=== PATIENT | female | born 1950 | race Caucasian/White ===

== ENCOUNTER 2016-07-21 02:29 | Inpatient (IN) | payer MEDICARE, OTHER ==
[2016-07-21] VITALS (25 sets, daily range): BP systolic 122–152; BP diastolic 64–96; PULSE 66–83; RESP 16–18; TEMP 98.1–98.6; O2SAT 95–97
[~2016-07-21 02:29] MED LIST: LEVO112T2 PO; LISI-515 PO; METF500T PO; VENL100T PO
[2016-07-21] MEDS: SODIUM CHLOR 0.9% 1000 ML INJ 1,000 ML IV SCH (03:00)
[2016-07-21] MEDS ORDERED: NALOXONE HCL 0.4 MG/ML AMP IV PRN (03:00)
[2016-07-21] MEDS ORDERED: SODIUM CHLORIDE 0.9% FLUSH 10 ML FLUSH IV FLUSH PRN (03:00)
[2016-07-21] MEDS ORDERED: ONDANSETRON HCL 4 MG/2 ML VIAL IVP PRN (03:00)
[2016-07-21] MEDS ORDERED: BISACODYL 10 MG SUPP RECTAL PRN (03:00)
[2016-07-21] MEDS ORDERED: MAGNESIUM HYDROXIDE SUSP 30 ML CUP PO PRN (03:00)
[2016-07-21] MEDS ORDERED: RESP: ALBUTEROL 2.5 MG/IPRATROPIUM 0.5 MG NEB (PRN) NEB (04:30)
--- NOTE | 2016-07-21 04:31 | HHI.HP ---
HPI Service [facility] Hospitalists Primary Care Physician Non-Staff Admission Diagnosis NSTEMI Diagnoses: Chief Complaint: Chest pain Travel History International Travel<30 Days: No Contact w/Intl Traveler <30 Da: No Traveled to Known Affected Are: No History of Present Illness Written by Michell Whelan, acting as scribe for Dr. Marte on 07/21/16 at 04: 29. This is a 66-year-old female patient with a past medical history which includes hypertension, hyperlipidemia, diabetes mellitus type 2 hypothyroidism and severe persistent asthma. Patient reports that she began to have left sided chest pain. Patient reports the chest pain started approximately 9 PM 2016. The patient describes chest pain left anterior tightness with intermittent sharp pains. Chest pain radiated to the back and left side of her jaw associated with nausea and shortness of breath. Patient reports her asthma has been uncontrolled recently due to mold in her home. Patient reports she uses Symbicort twice a day and continue to use her albuterol rescue inhaler multiple times throughout the day. Patient has also noticed a dry nonproductive cough for the past 3 days. Patient denies fevers chills diarrhea constipation. Patient is a chronic tobacco user and continues to smoke approximately 10 cigarettes per day. Initial EKG done at [facility] [place] reviewed and revealed sinus rhythm rate of 82 bpm with left bundle branch block. Patient does not have prior EKGs on record and is unaware of a left bundle branch block in the past. Review of Systems Except as stated in HPI: all other systems reviewed are Neg Past Family Social History Past Medical History hypertension, hyperlipidemia, diabetes mellitus type 2 hypothyroidism and severe persistent asthma. Past Surgical History Hysterectomy, cholecystectomy Reported Medications Effexor (Venlafaxine HCl) 100 Mg Tab 150 Mg PO DAILY Lisinopril 20 Mg Tab 20 Mg PO DAILY Levothyroxine (Levothyroxine Sodium) 112 Mcg Tab 112 Mcg PO DAILY Metformin (Metformin HCl) 500 Mg Tab 500 Mg PO BIDPC With meals Allergies: Coded Allergies: Aspirin (Verified Allergy, Severe, 07/20/16) Active Ordered Medications Current Medications Medications (Trade) Dose Ordered Sig/Luke Route Start Time Stop Time Status Last Admin (Synthroid) 112 mcg DAILY@0600 PO 07/21/16 06:00 (Prinivil) 20 mg DAILY PO 07/21/16 09:00 Venlafaxine HCl 150 mg 150 mg DAILY PO 07/21/16 09:00 (NS 1000 ml Inj) 1,000 ml @ 42 mls/hr [id number] IV 07/21/16 03:00 07/21/16 03:00 (NS Flush) 2 ml UNSCH PRN IV FLUSH 07/21/16 03:00 (NS Flush) 2 ml BID IV FLUSH 07/21/16 09:00 (Tylenol) 650 mg Q4H PRN PO 07/21/16 03:00 (Zofran Inj) 4 mg Q6H PRN IVP 07/21/16 03:00 (Narcan Inj) 0.4 mg UNSCH PRN IV 07/21/16 03:00 (Milk Of Magnesia Liq) 30 ml Q12H PRN PO 07/21/16 03:00 (Dulcolax Supp) 10 mg DAILY PRN RECTAL 07/21/16 03:00 (Lovenox Inj) 80 mg Q12H SQ 07/21/16 12:00 (Pravachol) 40 mg DAILY PO 07/21/16 09:00 (Nitroglycerin 2% Oint) 0.5 inch Q6HR TOPICAL 07/21/16 06:00 Family History Patient's sister secondary to [place] Social History Patient reports she occasionally drinks alcohol on weekends normal daily basis Reports she continues to smoke cigarettes but has cut back to 10 cigarette per day Physical Exam Vital Signs Vital Signs Date Time Temp Pulse Resp B/P Pulse Ox O2 Delivery O2 Flow Rate FiO2 07/21/16 04:00 74 07/21/16 03:00 98.1 83 16 152/96 95 07/21/16 03:00 80 Physical Exam GENERAL: This is a well-nourished, well-developed patient, in no apparent distress at this time. Patient denies chest pain but has continued back pain SKIN: No rashes, ecchymoses or lesions. Cool and dry. HEAD: Atraumatic. Normocephalic. No temporal or scalp tenderness. EYES: Extraocular motions intact. No scleral icterus. No injection or drainage. CARDIOVASCULAR: Regular rate and rhythm without murmur gallop or rub RESPIRATORY: Clear to auscultation. Breath sounds equal bilaterally. No wheezes , rales, or rhonchi. GASTROINTESTINAL: Abdomen soft, non-tender, nondistended. No hepato-splenomegaly , or palpable masses. No guarding. MUSCULOSKELETAL: Extremities without clubbing, cyanosis, or edema. No joint tenderness, effusion, or edema noted. No calf tenderness. Negative Homans sign bilaterally. NEUROLOGICAL: Awake and alert. No focal deficits appreciated. Motor and sensory grossly within normal limits. Five out of 5 muscle strength in all muscle groups. Normal speech. Laboratory Laboratory Tests Test 07/21/16 03:30 Troponin I 0.13 Result Diagram: 07/21/16 1047 07/21/16 104 Imaging Chest x-ray reviewed and reveals normal exam mild diffuse interstitial prominence Assessment and Plan Problem List: (1) NSTEMI (non-ST elevated myocardial infarction) ICD Code: I21.4 Status: Acute Assessment and Plan This is a 66-year-old female patient with a past medical history which includes hypertension, hyperlipidemia, diabetes mellitus type 2 hypothyroidism and severe persistent asthma. Patient reports that she began to have left sided chest pain. Initial EKG done at [facility] [place] reviewed and revealed sinus rhythm rate of 82 bpm with left bundle branch block. Patient does not have prior EKGs on record and is unaware of a left bundle branch block in the past. Initially [facility] was called who felt patient did not need urgent catheterization. ER physician spoke with Dr. Guillermo costa agreed to see patient in consultation and evaluate in a.m. for possible cardiac catheterization. NSTEMI Initial EKG reviewed and revealed sinus rhythm heart rate 82 bpm with left bundle branch block Consult cardiology Nothing by mouth Lovenox 1 mg/kg twice a day Nitro paste every 6 hours Continue serial troponin and serial EKG monitoring Continuous telemetry monitoring Start pravastatin 40 mg by mouth daily Will not start beta gerry at this time as patient has severe persistent asthma Unable to give aspirin as patient reports she has anaphylactic reaction in the past with aspirin Severe persistent asthma Continue Symbicort twice a day Duo nebs every 2 hours as needed for shortness of breath Diabetes mellitus type 2- chronic Hold metformin Accu-Cheks before meals at bedtime with low-dose sliding scale insulin coverage. Hypertension- chronic continue lisinopril Continue to monitor blood pressure trend Hypothyroidism- chronic Continue home Synthroid Tobacco abuse patient counseled extensively encouraged to abstain DVT prophylaxis patient is on Lovenox Discussed with ER provider, nursing and patient Physician Certification 2 Midnight Certification Type: Admission for Inpatient Services Order for Inpatient Services The services are ordered in accordance with Medicare regulations or non- Medicare payer requirements, as applicable. In the case of services not specified as inpatient-only, they are appropriately provided as inpatient services in accordance with the 2-midnight benchmark. Estimated LOS (days): 3 days is the estimated time the patient will need to remain in the hospital, assuming treatment plan goals are met and no additional complications. Post-Hospital Plan: Home Attending Statement The exam, history, and the medical decision-making described in the above note were completed with the assistance of the mid-level provider. I reviewed and agree with the findings presented. I attest that I had a [id number] encounter with the patient on the same day, and personally performed and documented my assessment and findings in the medical record. The patient was seen and examined earlier today around 10:30 AM. The patient states she had chest pain earlier but this has resolved after she was placed on a nitroglycerin patch. Denies chest pain or short of breath at the moment of this interview. The patient however states she has a very tender nodule on her back which she has noted for the past 2 weeks. She also complains of subjective fevers for the past same time. Patient is a febrile here in the hospital. Patient is awake alert oriented 3, nonacute distress, no respiratory distress observed. Subcutaneous bilaterally, S1-S2 regular rate and rhythm without murmurs rubs or gallops. This shows a tender erythematous nodule the mid back with some fluctuance to it. Patient presents with chest pain found to have elevated cardiac enzymes. Etiology consulted, discussed the case with Dr. Baron recommended a cardiac catheterization. Due to monitor cardiac enzymes, EKG as needed for chest pain. Continue treatment with aspirin, Lovenox subcutaneous at 80 mg every 12 hours , statin. Continue LILIANA inhibitor, although I will decrease the dose of lisinopril to 10 minutes by mouth daily in order to be able to start the patient on a beta gerry. Keep nothing by mouth at midnight. Will order labs and check a 2-D echocardiogram. Patient also has a nodule which looks infected. We'll order a soft tissue ultrasound of the pack to assess for fluid collection. In the meantime I will start the patient on IV Cefazolin. Michell Whelan Jul 21, 2016 04:31 Osvaldo Martin MD Jul 21, 2016 15:42
[2016-07-21] MEDS: NITROGLYCERIN 2% OINT 1 GM PACKET TOPICAL SCH ×4 (06:12→23:48)
[2016-07-21] MEDS: LEVOTHYROXINE SODIUM 112 MCG TAB PO SCH (06:12)
[2016-07-21] MEDS: VENLAFAXINE HCL XR 75 MG CAP PO SCH (08:50)
[2016-07-21] MEDS: PRAVASTATIN SOD 40 MG TAB PO SCH (08:50)
[2016-07-21] MEDS: SODIUM CHLORIDE 0.9% FLUSH 10 ML FLUSH IV FLUSH SCH ×2 (08:50→20:35)
[2016-07-21] MEDS ORDERED: LISINOPRIL 20 MG TAB PO SCH (09:00)
[2016-07-21 11:18] LABS: AUTOMATED NEUTROPHIL # 4.6 TH/MM3 (1.8-7.7); BASOPHIL # 0.2 TH/MM3 (0-0.2); EOSINOPHIL # 0.4 TH/MM3 (0-0.4); EOSINOPHIL % 4.5 % (0.0-4.0); HEMATOCRIT 36.7 % (35.0-46.0); HEMO FLAGS DIFF FINAL; LYMPH % 23.6 % (9.0-44.0); LYMPHOCYTE # 1.8 TH/MM3 (1.0-4.8); MEAN CELL VOLUME 92.8 FL (80.0-100.0); MEAN CORPUSCULAR HEMOGLOBIN 30.3 PG (27.0-34.0); MEAN CORPUSCULAR HGB CONC 32.7 % (32.0-36.0); MONO % 11.1 % (0.0-8.0); NEUT % 58.8 % (16.0-70.0); PLATELET COUNT 145 TH/MM3 (150-450); RED BLOOD COUNT 3.95 MIL/MM3 (4.00-5.30); RED CELL DISTRIBUTION WIDTH 14.1 % (11.6-17.2); WHITE BLOOD COUNT 7.8 TH/MM3 (4.0-11.0)
[2016-07-21 11:31] LABS: PROTHROMBIN TIME - PATIENT 10.5 SEC (9.8-11.6)
[2016-07-21] MEDS: CARVEDILOL 3.125 MG TAB PO SCH ×2 (11:32→20:34)
[2016-07-21] MEDS: ENOXAPARIN SODIUM 80 MG/0.8 ML SYRINGE SQ SCH ×2 (11:33→23:47)
[2016-07-21 11:35] LABS: ALT (GPT) 15 U/L (10-53); ANION GAP 10 MEQ/L (5-15); AST (GOT) 14 U/L (15-37); BICARBONATE 27.2 MEQ/L (21.0-32.0); BLOOD UREA NITROGEN 10 MG/DL (7-18); CHLORIDE 107 MEQ/L (98-107); GLOMERULAR FILTRATION RATE 127 ML/MIN (>89); MAGNESIUM 2.1 MG/DL (1.5-2.5); POTASSIUM 3.7 MEQ/L (3.5-5.1); SODIUM (NA) 144 MEQ/L (136-145)
[2016-07-21 11:38] LABS: ALKALINE PHOSPHATASE 57 U/L (45-117); TOTAL BILIRUBIN ADULT 0.8 MG/DL (0.2-1.0)
--- NOTE | 2016-07-21 11:44 | MB ---
cc: BALDOMERO BARFIELD DO DATE OF CONSULTATION 07/21/2016 REASON FOR CONSULTATION Chest pain with elevation of troponins. HISTORY OF PRESENT ILLNESS Monique Cerda is a pleasant 66-year-old female who presented to [facility] emergency room on July 20, 2016 due to chest pain. She states that she started having left-sided chest pain at around 09:00 p.m. on July 20, 2016. Left-sided chest pain was felt somewhat tight and squeezing with intermittent sharp pains. It did radiate somewhat to her jaw and she felt nauseous and short of breath with it. She was given nitro in the emergency room and this helped. She states that she has not had pain like this before. She was push mowing her lawn three to four weeks ago and had no pain or shortness of breath. She states that she does have to take a rest while mowing her lawn, but she feels this due to shortness of breath due to her asthma. Initial EKG done at the emergency room revealed a left bundle branch block. Per the patient, she had no prior history or awareness of an abnormal EKG or a left bundle branch block. She does have a history of an ALLERGIC REACTION TO ASPIRIN. Around the age of 40, she was given aspirin and at that time had respiratory arrest leading to cardiac arrest. Because of the episode, she was in the ICU for four to five days. Since then, she has had no other attempts at taking aspirin and has never been desensitized. PAST MEDICAL HISTORY 1. Hypertension 2. Hyperlipidemia 3. Diabetes mellitus type 2 4. Hypothyroidism 5. Severe asthma PAST SURGICAL HISTORY 1. Hysterectomy 2. Cholecystectomy ALLERGIES ASPIRIN WITH SEVERE ANAPHYLACTIC REACTION ABOVE. MEDICATIONS 1. Effexor 150 mg daily 2. Lisinopril 20 mg daily 3. Metformin 500 mg b.i.d. 4. Synthroid 112 mcg daily FAMILY HISTORY The patient had a sister who secondary to a myocardial infarction. SOCIAL HISTORY The patient states that she occasionally drinks alcohol on weekends. She denies drug abuse. She has a history of smoking cigarettes, but has cut back to 10 cigarettes per day. PHYSICAL EXAMINATION VITAL SIGNS: Temperature 98.2, heart rate 68, blood pressure 122/64, respirations 18, pulse ox 95% on room air. GENERAL: In general, the patient appears well in no acute distress, alert, awake and oriented x3. HEAD, EYES, EARS, NOSE, AND THROAT: Extraocular muscles intact. Mucous membranes moist. NECK: Supple. No JVD at 45 degrees. No carotid bruits heard bilaterally. Carotid upstroke is brisk in nature. HEART: Regular rate and rhythm. Positive first and second heart sounds with no murmurs, gallops or rubs. PMI is difficult to ascertain, but does not appear displaced. LUNGS: Lungs have decreased breath sounds bilaterally with intermittent wheezing, but no overt rales noted. ABDOMEN: Soft, nontender and nondistended. No organomegaly noted. EXTREMITIES: Show no clubbing, cyanosis or edema. Femoral and distal pulses intact bilaterally. NEUROLOGIC: No focal deficits. SKIN: Warm, dry and intact. OSTEOPATHIC: No kyphoscoliosis, lordosis or paraspinal tender points. LABORATORY FINDINGS Hemoglobin 12.7, hematocrit 37.9, platelets 190. Potassium 3.8, BUN 14, creatinine 0.60, troponin 0.12 increasing to 0.17. BNP 469. Electrocardiogram (July 21, 2016 at 0330) sinus rhythm, leftward axis, left bundle branch block. IMPRESSION 1. Mildly elevated troponin. 2. Abnormal EKG with left bundle branch block for which the patient is unsure if she has ever had a history. 3. Chest pain concerning for coronary insufficiency. 4. Diabetes mellitus type 2 5. Hypertension 6. Hypothyroidism 7. Tobacco abuse RECOMMENDATIONS 1. Because Ms. Cerda presented with chest pain, mildly elevated troponin and left bundle branch block, I suggested that we undergo some type of ischemic evaluation. My original suggestion was for cardiac catheterization, but she would like to at least have a chance of holding off on this. 2. Because she would like to hold off on catheterization, I suggested that we do an echocardiogram and if the ejection fraction looks normal, consider stress testing and if that is negative, I feel comfortable with letting her continue with medical management. If echocardiogram shows a decreased ejection fraction, then the plan will be for cardiac catheterization in the morning. 3. As she has significant aspirin allergy causing respiratory and cardiac arrest, if she does need intervention, the plan would be for single antiplatelet therapy with either Plavix or Brilinta. I let her know that if she does take this route, she can never stop the medication as her risk of stent thrombosis. We will see about possibly getting her to see an allergies as an outpatient for consideration of desensitization so that she can be on dual antiplatelet therapy. 4. Further recommendations will be made after echocardiogram and throughout the hospital course. Thank you for allowing me to see Monique Cerda. If there are any questions, please do not hesitate to call. Baldomero Barfield DO VGP/DJL /10:44 AM /11:28 AM
--- NOTE | 2016-07-21 17:57 | ECHRPT ---
Indication: Abnormal electrocardiogram ECG EKG CONCLUSIONS The left ventricular systolic function is severely reduced with an estimated ejection fraction in th e range of 30-35%. Akinetic mid- anterolateral wall motion. Akinetic mid-inferolateral wall motion with scar.The left atrial size is mildly dilated.moderate mitral valve regurgitation.There is mild tricuspid valve regurgitation.The pulmonary valve is not well visualized . BP: 152 / 96 HR: 76 Rhythm: Other - LBBB MEASUREMENTS (Male / Female) Normal Values Technical Quality:Good 2D ECHO LV Diastolic Diameter PLAX 5.1 cm 4.2 - 5.9 / 3.9 - 5.3 cm LV Systolic Diameter PLAX 4.3 cm IVS Diastolic Thickness 0.9 cm 0.6 - 1.0 / 0.6 - 0.9 cm LVPW Diastolic Thickness 0.9 cm 0.6 - 1.0 / 0.6 - 0.9 cm LV Relative Wall Thickness 0.4 LVOT Diameter 2.0 cm M-MODE Aortic Root Diameter MM 2.8 cm LA Systolic Diameter MM 4.4 cm LA Ao Ratio MM 1.6 AV Cusp Separation MM 1.8 cm DOPPLER AV Peak Velocity 110.0 cm/s AV Peak Gradient 4.8 mmHg LVOT Peak Velocity 93.3 cm/s LVOT Peak Gradient 3.5 mmHg AV Area Cont Eq pk 2.7 cm MR Peak Velocity 519.5 cm/s MR Peak Gradient 108.0 mmHg Mitral E Point Velocity 109.0 cm/s Mitral A Point Velocity 44.9 cm/s Mitral E to A Ratio 2.4 TR Peak Velocity 250.0 cm/s TR Peak Gradient 25.0 mmHg PV Peak Velocity 95.0 cm/s PV Peak Gradient 3.6 mmHg FINDINGS Left Ventricle The left ventricular systolic function is severely reduced with an estimated ejection fraction in th e range of 30-35%. Akinetic mid-anterolateral wall motion. Akinetic mid-inferolateral wall motion with scar. Right Ventricle Normal right ventricular size and systolic function. Left Atrium The left atrial size is mildly dilated. Right Atrium The right atrial size is normal. Atrial Septum Normal atrial septal thickness without atrial level shunting by limited color doppler interrogation. Aorta The aortic root and proximal ascending aorta are normal in size on limited imaging. Mitral Valve moderate mitral valve regurgitation. Aortic Valve Trileaflet aortic valve. No aortic valve stenosis or regurgitation. Tricuspid Valve There is mild tricuspid valve regurgitation. Pulmonary Valve The pulmonary valve is not well visualized. Vessels The inferior vena cava is normal in size. Pericardium No pericardial effusion. Luis A Singh MD, FACC, FSCAI Edited by: [employer] (Electronically Signed) Final Date:21 July 2016 15:11 Amended: 21 July 2016 17:49
[2016-07-21] MEDS ORDERED: GLUCAGON 1 MG/ML VIAL OTHER PRN (19:00)
[2016-07-21] MEDS ORDERED: DEXTROSE 50% IN WATER 50 ML VIAL(D50) IV PRN (19:00)
[2016-07-21] MEDS: INSULIN ASPART SUPPLEMENTAL SCALE SQ SCH (20:34)
[2016-07-21] MEDS ORDERED: GABA600T PO (20:37)
--- NOTE | 2016-07-21 21:15 | EKG ---
Date Performed: 07/21/2016 Time Performed: 03:30:30 PTAGE: 66 years EKG: Sinus rhythm Leftward axis Left bundle branch block Abnormal ECG NO PREVIOUS TRACING DOCTOR: Breanna Agrawal Interpretating Date/Time 07/21/2016 21:11:56
--- NOTE | 2016-07-21 22:41 | RADRPT ---
EXAM DATE/TIME: 07/21/2016 22:04 [facility] COMPARISON: No previous studies available for comparison. INDICATIONS : Mid back abscess. MEDICAL HISTORY : Hypothyroidism. Myocardial infarction. Hypercholesterolemia. Cardiac arrest. Chest pain. HTN. Sleep a pnea. Dyspnea. Asthma. GERD. Arthritis. Diabetes. Depression. Anxiety. SURGICAL HISTORY : Cholecystectomy. Hysterectomy. Subclavian vein procedure. Breast cysts removal. ENCOUNTER: Initial ACUITY: 4-6 days PAIN SCORE: 7/10 LOCATION: Back. AREA EVALUATED: Right mid back. FINDINGS: Targeted sonogram along the right mid back demonstrates a complex superficial soft tissues collection measuring 17 x 17 x 15 mm. CONCLUSION: Small complex fluid collection possible abscess. Juan C Spivey MD on July 21, 2016 at 22:37 Board Certified Radiologist. This report was verified electronically.
[2016-07-21] MEDS: ACETAMINOPHEN 325 MG TAB PO PRN (23:47)
[2016-07-22] VITALS (31 sets, daily range): BP systolic 139–152; BP diastolic 76–92; PULSE 56–84; RESP 16–20; TEMP 97.4–98.8; O2SAT 91–98
[2016-07-22] MEDS: SODIUM CHLOR 0.9% 1000 ML INJ 1,000 ML IV SCH ×2 (02:49→23:45)
[2016-07-22] MEDS: INSULIN ASPART SUPPLEMENTAL SCALE SQ SCH ×4 (05:43→21:00)
[2016-07-22] MEDS: NITROGLYCERIN 2% OINT 1 GM PACKET TOPICAL SCH ×4 (05:43→23:45)
[2016-07-22] MEDS: LEVOTHYROXINE SODIUM 112 MCG TAB PO SCH (05:43)
[2016-07-22 06:45] LABS: AUTOMATED NEUTROPHIL # 3.8 TH/MM3 (1.8-7.7); BASOPHIL # 0.1 TH/MM3 (0-0.2); BASOPHIL % 0.8 % (0.0-2.0); EOSINOPHIL # 0.5 TH/MM3 (0-0.4); EOSINOPHIL % 5.9 % (0.0-4.0); HEMATOCRIT 35.7 % (35.0-46.0); HEMO FLAGS DIFF FINAL; LYMPH % 35.8 % (9.0-44.0); LYMPHOCYTE # 2.8 TH/MM3 (1.0-4.8); MEAN CORPUSCULAR HEMOGLOBIN 30.7 PG (27.0-34.0); MONO % 9.3 % (0.0-8.0); NEUT % 48.2 % (16.0-70.0); PLATELET COUNT 146 TH/MM3 (150-450); RED BLOOD COUNT 3.84 MIL/MM3 (4.00-5.30); RED CELL DISTRIBUTION WIDTH 13.9 % (11.6-17.2); WHITE BLOOD COUNT 7.9 TH/MM3 (4.0-11.0)
[2016-07-22 07:10] LABS: BICARBONATE 27.8 MEQ/L (21.0-32.0); POTASSIUM 3.7 MEQ/L (3.5-5.1)
[2016-07-22] MEDS: VENLAFAXINE HCL XR 75 MG CAP PO SCH (08:49)
[2016-07-22] MEDS: PRAVASTATIN SOD 40 MG TAB PO SCH (08:49)
[2016-07-22] MEDS: CARVEDILOL 3.125 MG TAB PO SCH ×2 (08:49→21:45)
[2016-07-22] MEDS: SODIUM CHLORIDE 0.9% FLUSH 10 ML FLUSH IV FLUSH SCH ×2 (08:50→21:45)
[2016-07-22] MEDS: ACETAMINOPHEN 325 MG TAB PO PRN ×3 (08:59→23:45)
[2016-07-22] MEDS ORDERED: LISINOPRIL 10 MG TAB PO SCH (09:00)
[2016-07-22] MEDS: ENOXAPARIN SODIUM 80 MG/0.8 ML SYRINGE SQ SCH (12:00)
[2016-07-22] MEDS ORDERED: HEPARIN-NS/PF INJ 500 ML ONE (12:21)
[2016-07-22] MEDS ORDERED: VERAPAMIL HCL 5 MG/2 ML VIAL ONE (12:22)
[2016-07-22] MEDS ORDERED: HEPARIN SODIUM - IV 10,000 UNITS/10 ML VIAL ONE ×2 (12:22→12:38)
[2016-07-22] MEDS ORDERED: NITROGLYCERIN INJ 5 ML ONE (12:22)
[2016-07-22] MEDS ORDERED: MIDAZOLAM HCL 2 MG/2 ML VIAL ONE (12:32)
[2016-07-22] MEDS ORDERED: IOHEXOL 350 MG/ML 100 ML BTL (for Cath Lab) OTHER ONE (13:00)
--- NOTE | 2016-07-22 13:24 | CATHPROC ---
TOSA ([employer]) HIS Report Study Information Study Number Admission Scheduled Start Study Start f791 07/22/2016 07/22/2016 Jul 22 2016 11:51AM Study Type Barre Service Left Heart Cath Cardiac Catheterization Referring Institution Admit Source Facility Department 1 Other [facility] Relationship Executive Physician and Clinical Staff Initial Baldom[facility] [place] Network Systems Engineer Alaina Mcfadden RN Other Myriam Rodgers BSRN Recorder Amanda Pagan,RT(R) Recorder Ted Encarnacion RCIS(BS) Scrub Fortino Rodgers,RT(R) TECH2 Procedures Performed Procedure Location (Site) Vessel Name Coronary Angiograms LCA Left Coronary Coronary Angiograms RCA Right Coronary L Heart Cath Equipment Time Drive Away Driver Description Size Mfg Part Number Used/Scraped TRANSDUCER, TRUWAVE [id number] 12:20 VILLAGOMEZ RICHARDS * Used W/STOCKCOCK *[id number] *[id number] *[id number] 12:20 [employer] PACK, CCL CUSTOM * Used *[id number] 12:20 [employer] SUPPORT, ARTERIAL ADULT [id number] Used BAND, RADIAL COMPRESSION TR [id number] 13:09 [employer] MEDICAL 24CM Used SHORT 24 *[id number] 12:20 [employer] WIRE, EXCHANGE 260CM 3MMJ 260CM Used *[id number] 12:20 NAMIC MANIFOLD, 4 PORT * Used *[id number] 12:20 [employer]ED OMNIPAQUE, 350 MG, 150ML 150ML [id number] Used [id number] 12:20 [employer] BLANKET,WARM AIR CCL * Used *[id number] SHEATH, FR6 TRANSRADIAL 12:20 [employer] FR 6 RM*[id number] Used SLENDER 10CM History: Current Medications Medication Dosage/Unit Route Frequency Last Date/Time Taken LISINOPRIL Synthroid Glucophage Statins (any) History: Allergies Allergy Reaction Aspirin History: Risk Factors Family History of Hypertension Dyslipidemia Previous TN Previous Heart Failure Premature CAD Yes No No No No Prior Valve Prior PCI Prior CABG Surgery No No No Cerebrovascular Peripheral Artery Chronic Lung On Dialysis Diabetes Diabetes Therapy Disease Disease Disease No No No Yes Yes Oral History: Symptoms/Diagnosis Selection Items Chest pain History: Stress Tests Stress or Imaging Studies Performed No History: Other Current Smoker Method Packs a Day Yes Cigarettes 1 Labs Hgb (g/dl) Hct (%) RBC (MIL/MM3) WBC (l/cumm) Platelets (thousands) 12.00-18.00 37.00-55.00 4.80-6.20 4.80-10.80 140.00-450.00 11.8 35.7 3.8 7.9 146 Glucose (mg/dl) BUN (mg/dl) Creatinine (mg/dl) BUN:Creatinine (1:x) 60.00-110.00 8.00-20.00 0.10-9.00 10.00-20.00 90 10 0.4 25 Na (meq/l) K (meq/l) Cl (meq/l) CO2 (mmol/L) Ca (mg/dl) 138.00-146.00 3.80-5.10 101.00-111.00 23.00-30.00 9.00-10.50 144 3.7 108 27.8 8.4 PT (sec) INR (PTT:PT) 9.40-11.40 0.50-2.00 10.5 1 Troponin I (ng/ml) CPK-MB (ng/ML) 0.40-2.30 0.00-7.00 0.1 Not Drawn Medication Medication Total Dose (Bolus/Oral) Medication Total Dosage/Unit 1% XYLOCAINE 20 mL FENTANYL 100 mcg RADIAL COCKTAIL 5 mL (Bolus) VERSED 1 mg Medications (Bolus/Oral) Medication Time Given Dosage/Unit Administered By Reason VERSED 07/22/2016 12:43:16 PM 0.5 mg Rittenour, Myriam 0.5 mg VERSED given in lab by Myriam Rodgers BSRN in Right Antecubital via Peripheral IV. Ordered by Baldomero Baron. FENTANYL 07/22/2016 12:44:00 PM 25 mcg Rittenour, Myriam 25 mcg FENTANYL given in lab by Myriam Rodgers BSRN in Right Antecubital via Peripheral IV. Ordere d by Baldomero Baron. 1% XYLOCAINE 07/22/2016 12:45:12 PM 20 mL Baldomero Baron 20 mL 1% XYLOCAINE given in lab by Baldomero Baron in Right Radial via Subcutaneous. Ordered by Pet Baldomero [place]. VERSED 07/22/2016 12:46:47 PM 0.5 mg Rittenour, Myriam 0.5 mg VERSED given in lab by Myriam Rodgers BSRN in Right Antecubital via Peripheral IV. Ordered by Baldomero Baron. FENTANYL 07/22/2016 12:47:00 PM 25 mcg Rittenour, Myriam 25 mcg FENTANYL given in lab by Myriam Rodgers BSRN in Right Antecubital via Peripheral IV. Ordere d by Baldomero Baron. Ntg 200mcg Verapamil 2.5mg Heparin RADIAL COCKTAIL 07/22/2016 12:47:28 PM 5 mL (Bolus) Rittenour, Myriam 3000U 5 mL (Bolus) RADIAL COCKTAIL given in lab by Myriam Rodgers BSRN via Radial. Using [Solution Name] . Ordered by Baldomero Baron. Reason: Ntg 200mcg Verapamil 2.5mg Heparin 3000U. FENTANYL 07/22/2016 1:07:00 PM 50 mcg Rittenour, Myriam 50 mcg FENTANYL given in lab by Myriam Rodgers BSRN in Right Antecubital via Peripheral IV. Ordere d by Baldomero Baron. Medication (Drip) Medication Time Given Dosage/Unit Concentration/Unit Diluent (ml) Solution IV Solutions 07/22/2016 12:26:17 PM 0 mL (IV) NaCl .9 IV Solutions given in lab by Alaina Mcfadden RN in Left Forearm via Peripheral IV. Pump/Drip Flow = 20 ml/hr using NaCl .9. Initial Case Assessment Cardiovascular HR Rhythm NIBP Chest Pain 89 reg 161/109 0 Edema Present Skin color Skin None Normal Warm Circulatory - Right Pulses Dorsalis Pedis Femoral Brachial Radial 2 1 2 2 Scale (0,1,2,3,4,d) Circulatory - Left Pulses Dorsalis Pedis Femoral Brachial Radial 2 Scale (0,1,2,3,4,d) Circulatory - Lower Extremities Color Lower Right Color Lower Left Normal Normal Neurological State Oriented to time-place- Alert Moves all extremities person Initial Case Assessment Cardiovascular HR Rhythm NIBP Chest Pain 89 reg 161/109 0 Edema Present Skin color Skin None Normal Warm Circulatory - Right Pulses Dorsalis Pedis Femoral Brachial Radial 2 1 2 2 Scale (0,1,2,3,4,d) Circulatory - Left Pulses Dorsalis Pedis Femoral Brachial Radial 2 Scale (0,1,2,3,4,d) Circulatory - Lower Extremities Color Lower Right Color Lower Left Normal Normal Neurological State Oriented to time-place- Alert Moves all extremities person Respiration - General Respiration Rate SpO2 (%) (B/min) 19 91 Chronological Log Time Study Chronological Log 12:10:36 Patient arrived via Bed. 12:11:43 Patient Name, D.O.B, / Armband Verified By R.N. 12:12:47 Consent signed by the physician and the patient and verified by the Relationship Executive staff. 12:18:52 Pre-op and post- op instructions given; patient acknowledges understanding of instructions. 12:21:14 Verbal Stimulation=2 Physical Stimulation=2 Airway=2 Respiration=2 TOTAL=8. (0=absent, 1=li mited, 2=present) Vitals capture started with the following parameters, Patient=Adult, Interval=5 min, Initial Pr byfpuk=093 mmHg, 12:21:18 Deflation Rate=5 mmHg 12:21:45 Reference ECG taken 12:22:26 HR=78 bpm, AKAX=336/104 mmhg, SpO2=95.0 %, Resp=20 B/min, Pain=0, Ebony=10, Calvin=2 12:24:40 Allens test performed on the right radial and ulnar artery with a positive result by kenrick cardona 12:25:12 Patient has been NPO for More than 6Hrs. 12:25:13 Skin Breakdown-none 12:25:54 Patient Warmer Placed on the Table. 12:25:58 A # 20 IV was noted in the Forearm (left). Grade = 0 IV Solutions given in lab by Alaina Mcfadden RN in Left Forearm via Peripheral IV. Pump/Drip Flow = 20 ml/hr using 12:26:17 NaCl .9. 12:26:39 A # 20 IV was noted in the Antecubital (right). Grade = 0 saline locked 12:26:57 HR=80 bpm, QSNW=360/109 mmhg, SpO2=95.0 %, Resp=21 B/min, Pain=0, Ebony=10, Calvin=2 12:27:10 History and physical on the chart or being dictated. Assessment: Initial Case, HR=89 BPM, Rhythm=reg, JFCC=450/109 mmhg, Chest Pain=0, Edema=None, Color=Normal, Skin = Warm Right Pulses: Hitesh Ped=2, Femoral=1, Brachial=2, Radial=2 12:27:12 Left Pulses: Hitesh Ped=2 Lower Right Extremities: Color=Normal Lower Left Extremities: Color=Normal Neurological: State=Alert, Ox3, ABARCA 12:31:43 Bilateral groins prepped with 2% chlorhexidine, and with a 3 min. waiting time. 12:31:58 HR=76 bpm, VFNK=188/101 mmhg, SpO2=94.0 %, Resp=23 B/min, Pain=0, Ebony=10, Calvin=2 12:33:30 Pressure channel 1 zeroed. 12:36:59 HR=73 bpm, CDAU=546/101 mmhg, SpO2=94.0 %, Resp=21 B/min, Pain=0, Ebony=10, Calvin=2 12:38:03 PT ARRIVED WITH A NITRO PATCH ON RIGHT SHOULDER 12:39:07 MD arrived. 12:41:58 HR=77 bpm, YSOD=270/98 mmhg, SpO2=94.0 %, Resp=22 B/min, Pain=0, Ebony=10, Calvin=2 Time Out. Correct patient, correct procedure,correct physician, power not loaded with contrast with surgical team 12:42:28 present. Time Out Concurred by MD, individual staff in procedure 12:42:55 Case Start 0.5 mg VERSED given in lab by Myriam Rodgers BSRN in Right Antecubital via Peripheral IV. Or dered by Tod, 12:43:16 Baldomero. 25 mcg FENTANYL given in lab by Myriam Rodgers BSRN in Right Antecubital via Peripheral IV. Ordered by Tod, 12:44:00 Baldomero. 20 mL 1% XYLOCAINE given in lab by Baldomero Baron in Right Radial via Subcutaneous. Ordered by Tod, 12:45:12 Baldomero. 12:46:01 Access site was RIGHT Radial Artery. A SHEATH, FR6 TRANSRADIAL SLENDER 10CM FR 6 was advanced into the Radial (right) using the Perc utaneous 12:46:30 technique. 0.5 mg VERSED given in lab by Myriam Rodgers BSRN in Right Antecubital via Peripheral IV. Or dered by Tod, 12:46:47 Baldomero. 12:46:59 HR=75 bpm, NOPL=813/96 mmhg, SpO2=95.0 %, Resp=23 B/min, Pain=0, Ebony=10, Calvin=2 25 mcg FENTANYL given in lab by Myriam Rodgers BSRN in Right Antecubital via Peripheral IV. Ordered by Tod, 12:47:00 Baldomero. 5 mL (Bolus) RADIAL COCKTAIL given in lab by Myriam Rodgers BSRN via Radial. Using [Solution Name]. Ordered by 12:47:28 Baldomero Baron. Reason: Ntg 200mcg Verapamil 2.5mg Heparin 3000U. A JR 4.0 INFINITI CATHETER FR 5 was advanced over a wire. OMNIPAQUE, 350 MG, 150ML 150ML was us ed for 12:48:23 injections. Recorded Pressure: LV, HR=73, Condition=Condition 1 12:49:33 (Left Ventricle) LV 147/3/23 Recorded Pressure: LV, Ao, HR=72, Condition=Condition 1 12:50:06 (Left Ventricle) LV 146/2/21, (Aorta) Ao 148/74/102 Recorded Pressure: Ao, HR=72, Condition=Condition 1 12:50:47 (Aorta) Ao 133/79/103 12:51:07 The RCA was injected and visualized at various angles. OMNIPAQUE, 350 MG, 150ML 150ML used . After removing the current catheter a JL 3.5 INFINITI CATHETER FR 5 was advanced over a WIRE, E XCHANGE 260CM 12:51:21 3MMJ 260CM. 12:52:02 HR=72 bpm, HXXF=845/76 mmhg, SpO2=88.0 %, Resp=18 B/min, Pain=0, Ebony=10, Calvin=2 12:54:47 The LCA was injected and visualized at various angles. OMNIPAQUE, 350 MG, 150ML 150ML used . 12:56:57 HR=71 bpm, ANAL=657/87 mmhg, SpO2=93.0 %, Resp=14 B/min, Pain=0, Ebony=10, Calvin=2 12:58:35 Catheter was removed 13:01:58 HR=68 bpm, EPLA=356/91 mmhg, SpO2=92.0 %, Resp=18 B/min, Pain=0, Ebony=10, Calvin=2 13:02:03 Case End Assessment: Initial Case, HR=89 BPM, Rhythm=reg, TLVB=226/109 mmhg, Chest Pain=0, Edema=None, Color=Normal, Skin = Warm Right Pulses: Hitesh Ped=2, Femoral=1, Brachial=2, Radial=2 Left Pulses: Hitesh Ped=2 13:02:41 Lower Right Extremities: Color=Normal Lower Left Extremities: Color=Normal Neurological: State=Alert, Ox3, ABARCA Respiration: Resp=19 B/min, SpO2=91 % 13:03:19 Sterile dressing applied to site 13:03:20 No case complications noted. 13:03:21 Cine recording checked. 13:03:24 Bedside Report will be given. 13:03:25 Contrast Scanned 13:03:28 A Left Heart Cath was performed. 50 mcg FENTANYL given in lab by Myriam Rodgers BSRN in Right Antecubital via Peripheral IV. Ordered by Tod 13:07:00 Baldomero. 13:07:01 HR=65 bpm, PWBE=137/91 mmhg, SpO2=93.0 %, Resp=20 B/min, Pain=0, Ebony=10, Calvin=2 13:07:47 Patient moved to stretcher Radial Compression Device Used. 8 mLs of air placed in BAND, RADIAL COMPRESSION TR SHORT 24 24 CM. Affected 13:08:25 hand 91 % O2 saturation. 13:12:02 HR=71 bpm, NCOM=085/81 mmhg, SpO2=89.0 %, Resp=13 B/min, Pain=0, Ebony=10, Calvin=2 13:17:03 Vitals capture stopped. End Study - Contrast Media Used In Study Contrast Total Opened (mL) Total Used (mL) Total Wasted (mL) Omnipaque 50 50 0 End Study - Maximum Contrast Load Max Contrast Load (mL) 956.3 End Study - Radiation Exposure Fluoro Time (minutes) 2.5 End Study - Patient Disposition Complications Transferred To No Telemetry Bed
[2016-07-22] MEDS ORDERED: MISC INFORMATION XX ONE (13:30)
[2016-07-22] MEDS ORDERED: CLOPIDOGREL 75 MG TAB PO SCH (13:45)
--- NOTE | 2016-07-22 14:03 | MA ---
cc: BALDOEMRO BARFIELD DO DATE: July 22, 2016 PROCEDURE Left heart catheterization, coronary angiogram, moderate sedation 15 minutes. PREPROCEDURE DIAGNOSIS N-STEMI, abnormal EKG with left bundle branch block, new systolic heart failure with ejection fraction of 30-35%. POSTPROCEDURE DIAGNOSIS Minimal coronary artery disease by cardiac catheterization, left bundle branch block, new systolic heart failure with nonischemic cardiomyopathy. MEDICATIONS 1. Versed 1 mg. 2. Fentanyl 100 mcg. 3. Verapamil 2.5 mg. 4. Nitro 200 mcg. 5. Heparin 3000 units. CONTRAST USED 50 ccs. FLUOROSCOPY 2.5 minutes. SEDATION Moderate sedation 15 minutes. INDICATION Monique Cerda is a pleasant 66-year-old female who originally presented to the emergency room at [place] with chest pain. She was found to have a minimally elevated troponin. Her EKG showed a left bundle branch block which she did not know she had previously. Echocardiogram showed an ejection fraction of 30-35%. Because of all this it was felt that she should undergo coronary visualization. Risks, benefits and alternatives were explained to her and she consented as such. PROCEDURE She was brought to the lab and prepped in the usual sterile fashion. Right radial artery was accessed using a modified Seldinger technique and placement of a 5/6 Baham[place] sheath. This was easily aspirated and flushed. JR-4 was advanced over a J-wire to the ascending aorta and across the aortic valve into the left ventricle. Left ventricular pressure measurements were taken. This was pulled back across the aortic valve showing no significant gradient of aortic stenosis. JR-4 was used for selective angiography of the right coronary system. This was then exchanged out for a JL-3.5 which was used for selective angiography of the left coronary system. JL-3.5 was then removed over a J-wire. A radial band was placed across the arteriotomy site for hemostasis. The patient did have some pain and 2 ccs of air were removed for patent hemostasis of her right radial artery. The patient left the cardiac cath tech cardiovascularly stable. FINDINGS Left main was normal size vessel with adequate reflux. It trifurcates into an LAD, ramus and circumflex. LAD is a normal-size vessel with mild luminal irregularities throughout. It gives off one major diagonal which has an upper and lower branch with no significant disease. Ramus is a moderate-size vessel with no significant disease. Left circumflex has mild luminal irregularities throughout the midportion. It gives off one major obtuse marginal with no significant disease. Right coronary artery is a large vessel with mild luminal irregularities in the midportion, otherwise no significant disease. Left ventricular end-diastolic pressure 20. IMPRESSION 1. Minimal coronary artery disease by cardiac catheterization (July 22, 2016). 2. EKG showing left bundle branch block which is new to the patient. 3. New systolic heart failure with a nonischemic cardiomyopathy. RECOMMENDATIONS 1. Ms. Cerda appears to have nonischemic cardiomyopathy and should be started on medical management. 2. Because she cannot take aspirin we will plan on placing her on Plavix 75 mg daily. 3. She will be started on LILIANA inhibitor and beta gerry therapy for her heart failure. 4. She should have follow-up echocardiogram in the next 3 months and if ejection fraction is still low on medical management consideration of ICD therapy. 5. We will attempt to have her follow up with cardiology out towards [facility] as this is closer to home for her. Thank you for allowing me to see Monique Cerda, if there are any questions please do not hesitate to call. Baldomero Barfield DO VGP/TLL /1:25 PM /1:36 PM
--- NOTE | 2016-07-22 17:38 | PD.CARD.PN ---
Subjective Subjective Remarks Post-cath, doing well No chest pain, no shortness of breath Objective Medications Current Medications Medications (Trade) Dose Ordered Sig/Luke Route Start Time Stop Time Status Last Admin (Synthroid) 112 mcg DAILY@0600 PO 07/21/16 06:00 07/22/16 05:43 Venlafaxine HCl 150 mg 150 mg DAILY PO 07/21/16 09:00 07/22/16 08:49 (NS 1000 ml Inj) 1,000 ml @ 42 mls/hr [id number] IV 07/21/16 03:00 07/22/16 02:49 (NS Flush) 2 ml UNSCH PRN IV FLUSH 07/21/16 03:00 (NS Flush) 2 ml BID IV FLUSH 07/21/16 09:00 07/22/16 08:50 (Tylenol) 650 mg Q4H PRN PO 07/21/16 03:00 07/22/16 15:53 (Zofran Inj) 4 mg Q6H PRN IVP 07/21/16 03:00 (Narcan Inj) 0.4 mg UNSCH PRN IV 07/21/16 03:00 (Milk Of Magnesia Liq) 30 ml Q12H PRN PO 07/21/16 03:00 (Dulcolax Supp) 10 mg DAILY PRN RECTAL 07/21/16 03:00 (Pravachol) 40 mg DAILY PO 07/21/16 09:00 07/22/16 08:49 (Nitroglycerin 2% Oint) 0.5 inch Q6HR TOPICAL 07/21/16 06:00 07/22/16 05:43 (Coreg) 3.125 mg Q12HR PO 07/21/16 09:45 07/22/16 08:49 Lisinopril 10 mg 10 mg DAILY PO 07/22/16 09:00 07/22/16 08:49 (Ancef Inj/NS Inj) 100 ml @ 200 mls/hr Q8H IV 07/21/16 16:00 07/22/16 15:40 (D50w (Vial) Inj) 50 ml UNSCH PRN IV 07/21/16 19:00 (Glucagon Inj) 1 mg UNSCH PRN OTHER 07/21/16 19:00 (Plavix) 75 mg DAILY PO 07/22/16 13:45 07/22/16 15:39 Vital Signs / I&O Vital Signs Date Time Temp Pulse Resp B/P Pulse Ox O2 Delivery O2 Flow Rate FiO2 07/22/16 17:31 91 21 07/22/16 16:07 84 07/22/16 15:34 70 07/22/16 15:00 98.8 70 20 143/76 91 07/22/16 14:08 63 07/22/16 13:37 64 07/22/16 11:29 98.4 56 20 147/90 96 07/22/16 11:00 56 07/22/16 10:00 62 07/22/16 09:53 98 21 07/22/16 09:00 60 07/22/16 08:00 68 07/22/16 08:00 98.1 66 20 146/90 95 07/22/16 07:00 66 07/22/16 06:00 63 07/22/16 05:00 66 07/22/16 04:00 98.5 74 18 139/86 94 07/22/16 04:00 66 07/22/16 03:00 74 07/22/16 02:00 75 07/22/16 01:00 71 07/22/16 00:08 98.5 75 18 152/92 94 07/22/16 00:00 75 07/21/16 23:00 75 07/21/16 22:00 76 07/21/16 21:26 96 21 07/21/16 21:00 76 07/21/16 20:00 98.5 75 18 151/93 97 07/21/16 20:00 78 07/21/16 19:00 75 07/21/16 18:00 80 I/O 07/21/16 07/21/16 07/21/16 07/22/16 07/22/16 07/22/16 07:00 15:00 23:00 07:00 15:00 23:00 Intake Total 62 ml 600 ml 580 ml Output Total 400 ml 600 ml 900 ml Balance -338 ml 0 ml -320 ml Intake Oral 600 ml 480 ml IV Total 62 ml 100 ml Output Urine Total 400 ml 600 ml 900 ml # Bowel Movements 0 Physical Exam GENERAL: NAD SKIN: Warm and dry. HEAD: Atraumatic. Normocephalic. EYES: Pupils equal and round. No scleral icterus. No injection or drainage. ENT: No nasal bleeding or discharge. Mucous membranes pink and moist. NECK: Trachea midline. No JVD. CARDIOVASCULAR: Regular rate and rhythm. RESPIRATORY: No accessory muscle use. Clear to auscultation. Breath sounds equal bilaterally. GASTROINTESTINAL: Abdomen soft, non-tender, nondistended. Hepatic and splenic margins not palpable. MUSCULOSKELETAL: Extremities without clubbing, cyanosis, or edema. No obvious deformities. NEUROLOGICAL: Awake and alert. No obvious cranial nerve deficits. Motor grossly within normal limits. Five out of 5 muscle strength in the arms and legs. Normal speech. PSYCHIATRIC: Appropriate mood and affect; insight and judgment normal. Laboratory Laboratory Tests Test 07/22/16 05:36 White Blood Count 7.9 TH/MM3 Red Blood Count 3.84 MIL/MM3 Hemoglobin 11.8 GM/DL Hematocrit 35.7 % Mean Corpuscular Volume 93.0 FL Mean Corpuscular Hemoglobin 30.7 PG Mean Corpuscular Hemoglobin 33.0 % Concent Red Cell Distribution Width 13.9 % Platelet Count 146 TH/MM3 Mean Platelet Volume 10.4 FL Neutrophils (%) (Auto) 48.2 % Lymphocytes (%) (Auto) 35.8 % Monocytes (%) (Auto) 9.3 % Eosinophils (%) (Auto) 5.9 % Basophils (%) (Auto) 0.8 % Neutrophils # (Auto) 3.8 TH/MM3 Lymphocytes # (Auto) 2.8 TH/MM3 Monocytes # (Auto) 0.7 TH/MM3 Eosinophils # (Auto) 0.5 TH/MM3 Basophils # (Auto) 0.1 TH/MM3 CBC Comment DIFF FINAL Differential Comment Sodium Level 144 MEQ/L Potassium Level 3.7 MEQ/L Chloride Level 108 MEQ/L Carbon Dioxide Level 27.8 MEQ/L Anion Gap 8 MEQ/L Blood Urea Nitrogen 9 MG/DL Creatinine 0.55 MG/DL Estimat Glomerular Filtration 111 ML/MIN Rate Random Glucose 93 MG/DL Calcium Level 8.4 MG/DL Total Creatine Kinase 39 U/L Troponin I 0.11 NG/ML Assessment and Plan Problem List: (1) NSTEMI (non-ST elevated myocardial infarction) (2) NICM (nonischemic cardiomyopathy) (3) Dyspnea (4) Diabetes (5) CHF (congestive heart failure) (6) Chest pain Assessment and Plan 1) Catheterization showing no significant disease Con't medical management ASA allergy, so will place on Plavix 2) NICM EF 30-35% LILIANA/Coreg 3) Needs outpt follow-up Repeat echo in 3 months, if still low EF on optimal meds then consider ICD 4) Will plan discharge tomorrow if stable over night Baldomero Baron DO Jul 22, 2016 17:37
--- NOTE | 2016-07-22 18:58 | HHI.PR ---
Objective Vitals Vital Signs Date Time Temp Pulse Resp B/P Pulse Ox O2 Delivery O2 Flow Rate FiO2 07/22/16 18:15 60 07/22/16 17:31 91 21 07/22/16 17:00 61 07/22/16 16:07 84 07/22/16 15:34 70 07/22/16 15:00 98.8 70 20 143/76 91 07/22/16 14:08 63 07/22/16 13:37 64 07/22/16 11:29 98.4 56 20 147/90 96 07/22/16 11:00 56 07/22/16 10:00 62 07/22/16 09:53 98 21 07/22/16 09:00 60 07/22/16 08:00 68 07/22/16 08:00 98.1 66 20 146/90 95 07/22/16 07:00 66 07/22/16 06:00 63 07/22/16 05:00 66 07/22/16 04:00 98.5 74 18 139/86 94 07/22/16 04:00 66 07/22/16 03:00 74 07/22/16 02:00 75 07/22/16 01:00 71 07/22/16 00:08 98.5 75 18 152/92 94 07/22/16 00:00 75 07/21/16 23:00 75 07/21/16 22:00 76 07/21/16 21:26 96 21 07/21/16 21:00 76 07/21/16 20:00 98.5 75 18 151/93 97 07/21/16 20:00 78 07/21/16 19:00 75 I/O 07/21/16 07/21/16 07/21/16 07/22/16 07/22/16 07/22/16 07:00 15:00 23:00 07:00 15:00 23:00 Intake Total 62 ml 600 ml 580 ml 480 ml Output Total 400 ml 600 ml 900 ml 1300 ml Balance -338 ml 0 ml -320 ml -820 ml Intake Oral 600 ml 480 ml 480 ml IV Total 62 ml 100 ml Output Urine Total 400 ml 600 ml 900 ml 1300 ml # Bowel Movements 0 0 Result Diagram: 07/22/16 0536 07/22/16 0536 A/P Problem List: (1) NSTEMI (non-ST elevated myocardial infarction) ICD Code: I21.4 Status: Acute Osvaldo Martin MD Jul 22, 2016 18:58
--- NOTE | 2016-07-22 19:56 | HHI.PR ---
Subjective Remarks Denies cp/sob sp cardiac cath denies fevers or chills pain in back has improved Objective Vitals Vital Signs Date Time Temp Pulse Resp B/P Pulse Ox O2 Delivery O2 Flow Rate FiO2 07/22/16 18:15 60 07/22/16 17:31 91 21 07/22/16 17:00 61 07/22/16 16:07 84 07/22/16 15:34 70 07/22/16 15:00 98.8 70 20 143/76 91 07/22/16 14:08 63 07/22/16 13:37 64 07/22/16 11:29 98.4 56 20 147/90 96 07/22/16 11:00 56 07/22/16 10:00 62 07/22/16 09:53 98 21 07/22/16 09:00 60 07/22/16 08:00 68 07/22/16 08:00 98.1 66 20 146/90 95 07/22/16 07:00 66 07/22/16 06:00 63 07/22/16 05:00 66 07/22/16 04:00 98.5 74 18 139/86 94 07/22/16 04:00 66 07/22/16 03:00 74 07/22/16 02:00 75 07/22/16 01:00 71 07/22/16 00:08 98.5 75 18 152/92 94 07/22/16 00:00 75 07/21/16 23:00 75 07/21/16 22:00 76 07/21/16 21:26 96 21 07/21/16 21:00 76 07/21/16 20:00 98.5 75 18 151/93 97 07/21/16 20:00 78 I/O 07/21/16 07/21/16 07/21/16 07/22/16 07/22/16 07/22/16 07:00 15:00 23:00 07:00 15:00 23:00 Intake Total 62 ml 600 ml 580 ml 480 ml Output Total 400 ml 600 ml 900 ml 1300 ml Balance -338 ml 0 ml -320 ml -820 ml Intake Oral 600 ml 480 ml 480 ml IV Total 62 ml 100 ml Output Urine Total 400 ml 600 ml 900 ml 1300 ml # Bowel Movements 0 0 Result Diagram: 07/22/16 0536 07/22/16 0536 Imaging Last Impressions Soft Tissue Ultrasound 07/21/16 0000 Signed Impressions: Service Date/Time: Thursday, July 21, 2016 22:04 - CONCLUSION: Small complex fluid collection possible abscess. Juan C Spivey MD Objective Remarks GENERAL: This is a well-nourished, well-developed patient, in no apparent distress at this time. Patient denies chest pain but has continued back pain SKIN: No rashes, ecchymoses. there is a tender nodule with erythema and warmth in the back very tender to palpation and fluctuance. HEAD: Atraumatic. Normocephalic. No temporal or scalp tenderness. EYES: Extraocular motions intact. No scleral icterus. No injection or drainage. CARDIOVASCULAR: Regular rate and rhythm without murmur gallop or rub RESPIRATORY: Clear to auscultation. Breath sounds equal bilaterally. No wheezes , rales, or rhonchi. GASTROINTESTINAL: Abdomen soft, non-tender, nondistended. No hepato-splenomegaly , or palpable masses. No guarding. MUSCULOSKELETAL: Extremities without clubbing, cyanosis, or edema. No joint tenderness, effusion, or edema noted. No calf tenderness. Negative Homans sign bilaterally. NEUROLOGICAL: Awake and alert. No focal deficits appreciated. Motor and sensory grossly within normal limits. Five out of 5 muscle strength in all muscle groups. Normal speec Medications and IVs Current Medications Medications (Trade) Dose Ordered Sig/Luke Route Start Time Stop Time Status Last Admin (Synthroid) 112 mcg DAILY@0600 PO 07/21/16 06:00 07/22/16 05:43 Venlafaxine HCl 150 mg 150 mg DAILY PO 07/21/16 09:00 07/22/16 08:49 (NS 1000 ml Inj) 1,000 ml @ 42 mls/hr [id number] IV 07/21/16 03:00 07/22/16 02:49 (NS Flush) 2 ml UNSCH PRN IV FLUSH 07/21/16 03:00 (NS Flush) 2 ml BID IV FLUSH 07/21/16 09:00 07/22/16 08:50 (Tylenol) 650 mg Q4H PRN PO 07/21/16 03:00 07/22/16 15:53 (Zofran Inj) 4 mg Q6H PRN IVP 07/21/16 03:00 (Narcan Inj) 0.4 mg UNSCH PRN IV 07/21/16 03:00 (Milk Of Magnesia Liq) 30 ml Q12H PRN PO 07/21/16 03:00 (Dulcolax Supp) 10 mg DAILY PRN RECTAL 07/21/16 03:00 (Pravachol) 40 mg DAILY PO 07/21/16 09:00 07/22/16 08:49 (Nitroglycerin 2% Oint) 0.5 inch Q6HR TOPICAL 07/21/16 06:00 07/22/16 05:43 (Coreg) 3.125 mg Q12HR PO 07/21/16 09:45 07/22/16 08:49 Lisinopril 10 mg 10 mg DAILY PO 07/22/16 09:00 07/22/16 08:49 (Ancef Inj/NS Inj) 100 ml @ 200 mls/hr Q8H IV 07/21/16 16:00 07/22/16 15:40 (D50w (Vial) Inj) 50 ml UNSCH PRN IV 07/21/16 19:00 (Glucagon Inj) 1 mg UNSCH PRN OTHER 07/21/16 19:00 (Plavix) 75 mg DAILY PO 07/22/16 13:45 Hold 07/22/16 15:39 Urinary Catheter: No Vascular Central Line Catheter: No A/P Problem List: (1) Chest pain ICD Code: R07.9 Status: Acute Plan: 66-year-old diabetic, hypertensive, hyperlipidemic female, presents with left-sided chest pain. Initial EKG done at [facility] the toenail reviewed revealed sinus rhythm at a rate of 82 bpm with a left bundle branch block. There are no prior EKGs on record and the patient isn't aware of a left bundle branch block in the past. Initially the [facility] call cardiology and discussed the case with Dr. Li who agreed to see the patient in consultation and evaluate in a.m. for possible cardiac catheterization. Cardiology consulted. Patient started on Lovenox 1 mg/kg twice a day and Nitropaste every 6 hours History of troponins monitored serial troponins initially trended up from 0.13- 0.17 and then trended down to 0.11. The patient had a 2-D echocardiogram which showed an estimated ejection fraction the range of 30-35%, akinetic mid anterolateral wall motion. Akinetic mid inferolateral wall motion with scar. The left atrial size is mildly dilated. There is moderate mitral valve regurgitation. There is mild tricuspid valve regurgitation. The patient underwent cardiac catheterization on 07/22 were minimal CAD was found. The case was discussed with Dr. Baron at length. The patient has been started on LILIANA inhibitor, statin, carvedilol, and Plavix since the patient is allergic to aspirin. (2) Elevated troponin ICD Code: R74.8 Status: Acute Plan: As above (3) Diabetes ICD Code: E11.9 Status: Chronic Plan: Continue SSI with insulin NovoLog. Blood sugar seems to be stable. Check hemoglobin A1c. Meds metformin has been held. Continue to hold. (4) HTN (hypertension) ICD Code: I10 Status: Acute Plan: Blood pressure seems to be stable. The lisinopril which I will increase to the original 20 mg by mouth taken by the patient at home. Continue Coreg. (5) Hypothyroidism ICD Code: E03.9 Status: Acute Plan: Continue levothyroxine. (6) Tobacco abuse ICD Code: Z72.0 Status: Acute Plan: Advised smoking cessation. (7) Diabetic neuropathy ICD Code: E11.40 Status: Acute Plan: Resume gabapentin. (8) Abscess ICD Code: L02.91 Status: Acute Plan: Patient has been having a skin soft tissue induration in the back which in the past few days have been progressively gaping getting more painful. Soft tissue ultrasound was performed that showed possible abscess. Surgery has been consulted. Case discussed with Dr. Latif will drain the abscess in a.m. Place nothing by mouth at midnight. Continue IV cefazolin. Assessment and Plan DVT prophylaxis: SCDs, on Plavix. Discharge Planning Possible discharge in a.m. after abscess drained. Problem Qualifiers (1) Diabetes: Qualified Code: E11.42 - Type 2 diabetes mellitus with diabetic polyneuropathy , without long-term current use of insulin (2) HTN (hypertension): Qualified Code: I10 - Essential hypertension (3) Hypothyroidism: Qualified Code: E03.9 - Hypothyroidism, unspecified type (4) Diabetic neuropathy: Qualified Code: E11.42 - Diabetic polyneuropathy associated with type 2 diabetes mellitus Osvaldo Martin MD Jul 22, 2016 19:56
[2016-07-22] MEDS: GABAPENTIN 300 MG CAP PO SCH (21:45)
[2016-07-23] VITALS (18 sets, daily range): BP systolic 117–144; BP diastolic 63–87; PULSE 56–100; RESP 16–20; TEMP 97.7–98.3; O2SAT 94–99
[2016-07-23] MEDS: NITROGLYCERIN 2% OINT 1 GM PACKET TOPICAL SCH ×2 (06:00→12:56)
[2016-07-23] MEDS: INSULIN ASPART SUPPLEMENTAL SCALE SQ SCH ×2 (06:09→11:30)
[2016-07-23] MEDS: LEVOTHYROXINE SODIUM 112 MCG TAB PO SCH (06:19)
[2016-07-23 06:34] LABS: BASOPHIL # 0.1 TH/MM3 (0-0.2); BASOPHIL % 1.2 % (0.0-2.0); EOSINOPHIL # 0.4 TH/MM3 (0-0.4); EOSINOPHIL % 5.1 % (0.0-4.0); HEMATOCRIT 36.1 % (35.0-46.0); HEMO FLAGS DIFF FINAL; MEAN CELL VOLUME 92.7 FL (80.0-100.0); MEAN CORPUSCULAR HEMOGLOBIN 30.5 PG (27.0-34.0); MEAN CORPUSCULAR HGB CONC 32.9 % (32.0-36.0); NEUT % 55.7 % (16.0-70.0); PLATELET COUNT 153 TH/MM3 (150-450); RED CELL DISTRIBUTION WIDTH 13.9 % (11.6-17.2); WHITE BLOOD COUNT 7.1 TH/MM3 (4.0-11.0)
[2016-07-23 07:08] LABS: POTASSIUM 3.7 MEQ/L (3.5-5.1)
[2016-07-23] MEDS ORDERED: LISINOPRIL 20 MG TAB PO SCH (09:00)
[2016-07-23] MEDS: SODIUM CHLORIDE 0.9% FLUSH 10 ML FLUSH IV FLUSH SCH (09:21)
[2016-07-23] MEDS: GABAPENTIN 300 MG CAP PO SCH (09:22)
[2016-07-23] MEDS: VENLAFAXINE HCL XR 75 MG CAP PO SCH (09:22)
[2016-07-23] MEDS: PRAVASTATIN SOD 40 MG TAB PO SCH (09:22)
[2016-07-23] MEDS: CARVEDILOL 3.125 MG TAB PO SCH (09:22)
[2016-07-23] MEDS: ACETAMINOPHEN 325 MG TAB PO PRN (09:31)
[2016-07-23 10:26] LABS: HEMOGLOBIN A1a 1.3 %; HEMOGLOBIN A1b 0.9 %; HEMOGLOBIN Ao 84.9 %; HEMOGLOBIN F 1.3 %; HEMOGLOBIN LA1C 1.7 %; HEMOGLOBIN P3 3.5 %
--- NOTE | 2016-07-23 11:43 | PD.CONS ---
cc: Miguel Ángel Latif MD HPI Service General Surgery Consult Requested By Dr. Navarrete Reason for Consult Evaluation of back abscess Primary Care Physician Non-Staff History of Present Illness This is a 66 year old female with a past medical history of hypertension, high cholesterol, type 2 diabetes mellitus, hypothyroidism, and asthma. She presented to the ED for evaluation of chest pain. During this admission she had a cardiac catheterization that showed no significant disease. They will continue medical management. She complains of pain in her mid back due to a lump that has been there for several years. She states that the lump has increased in size over the last 2-4 weeks. A General Surgery consultation has been requested for evaluation of possible back abscess. Review of Systems Constitutional: DENIES: Fever, Weight gain Endocrine: DENIES: Polydipsia, Polyuria, Polyphagia Eyes: DENIES: Diplopia, Eye inflammation Ears, nose, mouth, throat: DENIES: Hearing loss, Vertigo Respiratory: DENIES: Apneas, Cough Cardiovascular: DENIES: Chest pain Gastrointestinal: DENIES: Abdominal pain Genitourinary: DENIES: Urinary frequency Musculoskeletal: COMPLAINS OF: Back pain (from midback abscess ) Integumentary: DENIES: Abnormal pigmentation Hematologic/lymphatic: DENIES: Bruising Immunologic/allergic: DENIES: Eczema Neurologic: DENIES: Headache, Localized weakness Psychiatric: DENIES: Mood changes, Depression, Hallucinations Past Family Social History Past Medical History Hypertension High cholesterol Diabetes type 2 Hypothyroidism Asthma Past Surgical History Hysterectomy Laparoscopic cholecystectomy Reported Medications See chart but of note the patient does take Plavix. Allergies: Coded Allergies: Aspirin (Verified Allergy, Severe, 07/20/16) Active Ordered Medications Current Medications Medications (Trade) Dose Ordered Sig/Luke Route Start Time Stop Time Status Last Admin (Synthroid) 112 mcg DAILY@0600 PO 07/21/16 06:00 07/23/16 06:19 Venlafaxine HCl 150 mg 150 mg DAILY PO 07/21/16 09:00 07/23/16 09:22 (NS 1000 ml Inj) 1,000 ml @ 42 mls/hr [id number] IV 07/21/16 03:00 07/22/16 02:49 (NS Flush) 2 ml UNSCH PRN IV FLUSH 07/21/16 03:00 (NS Flush) 2 ml BID IV FLUSH 07/21/16 09:00 07/23/16 09:21 (Tylenol) 650 mg Q4H PRN PO 07/21/16 03:00 07/23/16 09:31 (Zofran Inj) 4 mg Q6H PRN IVP 07/21/16 03:00 (Narcan Inj) 0.4 mg UNSCH PRN IV 07/21/16 03:00 (Milk Of Magnesia Liq) 30 ml Q12H PRN PO 07/21/16 03:00 (Dulcolax Supp) 10 mg DAILY PRN RECTAL 07/21/16 03:00 (Pravachol) 40 mg DAILY PO 07/21/16 09:00 07/23/16 09:22 (Nitroglycerin 2% Oint) 0.5 inch Q6HR TOPICAL 07/21/16 06:00 07/22/16 05:43 Carvedilol 3.125 mg 3.125 mg Q12HR PO 07/21/16 09:45 07/23/16 09:22 (Ancef Inj/NS Inj) 100 ml @ 200 mls/hr Q8H IV 07/21/16 16:00 07/23/16 09:21 (D50w (Vial) Inj) 50 ml UNSCH PRN IV 07/21/16 19:00 (Glucagon Inj) 1 mg UNSCH PRN OTHER 07/21/16 19:00 (Plavix) 75 mg DAILY PO 07/22/16 13:45 Hold 07/22/16 15:39 (Neurontin) 600 mg BID PO 07/22/16 21:00 07/23/16 09:22 (Prinivil) 20 mg DAILY PO 07/23/16 09:00 07/23/16 09:27 Family History Noncontributory Social History Positive tobacco use 10 cigarettes daily EtOH use-weekends occasionally Denies illicit drug use Physical Exam Vital Signs Vital Signs Date Time Temp Pulse Resp B/P Pulse Ox O2 Delivery O2 Flow Rate FiO2 07/23/16 10:36 99 21 07/23/16 10:00 56 07/23/16 09:00 62 07/23/16 08:00 88 07/23/16 08:00 98.1 62 20 144/83 97 07/23/16 07:00 100 07/23/16 06:00 78 07/23/16 05:00 61 07/23/16 04:00 62 07/23/16 03:30 97.7 87 16 141/87 94 07/23/16 03:00 63 07/23/16 02:00 63 07/23/16 01:00 60 07/23/16 00:00 66 07/22/16 23:40 97.4 64 16 142/83 95 07/22/16 23:00 68 07/22/16 22:00 72 07/22/16 21:00 68 07/22/16 20:00 72 07/22/16 19:30 97.9 69 16 151/90 97 07/22/16 19:00 70 07/22/16 18:15 60 07/22/16 17:31 91 21 07/22/16 17:00 61 07/22/16 16:07 84 07/22/16 15:34 70 07/22/16 15:00 98.8 70 20 143/76 91 07/22/16 14:08 63 07/22/16 13:37 64 Physical Exam GENERAL: 66 year old female resting in bed in no acute distress. SKIN: MIdback--appears to be an infected sebaceous cyst with minimal redness and no drainage present. Otherwise skin assessment is negative. HEAD: Atraumatic. Normocephalic. EYES: Pupils equal and round. No scleral icterus. No injection or drainage. ENT: No nasal bleeding or discharge. Mucous membranes pink and moist. NECK: Trachea midline. CARDIOVASCULAR: Regular rate and rhythm. RESPIRATORY: No accessory muscle use. Clear to auscultation. Breath sounds equal bilaterally. GASTROINTESTINAL: Abdomen soft, non-tender, nondistended. MUSCULOSKELETAL: Extremities without clubbing, cyanosis, or edema. No obvious deformities. NEUROLOGICAL: Awake and alert. No obvious cranial nerve deficits. Motor grossly within normal limits. Five out of 5 muscle strength in the arms and legs. Normal speech. PSYCHIATRIC: Appropriate mood and affect; insight and judgment normal. Laboratory Laboratory Tests Test 07/23/16 06:10 White Blood Count 7.1 Red Blood Count 3.90 Hemoglobin 11.9 Hematocrit 36.1 Mean Corpuscular Volume 92.7 Mean Corpuscular Hemoglobin 30.5 Mean Corpuscular Hemoglobin 32.9 Concent Red Cell Distribution Width 13.9 Platelet Count 153 Mean Platelet Volume 10.1 Neutrophils (%) (Auto) 55.7 Lymphocytes (%) (Auto) 28.0 Monocytes (%) (Auto) 10.0 Eosinophils (%) (Auto) 5.1 Basophils (%) (Auto) 1.2 Neutrophils # (Auto) 4.0 Lymphocytes # (Auto) 2.0 Monocytes # (Auto) 0.7 Eosinophils # (Auto) 0.4 Basophils # (Auto) 0.1 CBC Comment DIFF FINAL Differential Comment Sodium Level 142 Potassium Level 3.7 Chloride Level 108 Carbon Dioxide Level 26.0 Anion Gap 8 Blood Urea Nitrogen 10 Creatinine 0.54 Estimat Glomerular Filtration 113 Rate Random Glucose 94 Calcium Level 8.8 Result Diagram: 07/23/1610 07/23/1610 Assessment and Plan Assessment and Plan 66 year old female presents to the ED for evaluation of chest pain; General Surgery consultation for evaluation of mid back abscess -Patient appears to have a mildly infected sebaceous cyst -Continue antibiotics -Resume diet -Okay to resume Plavix from General Surgery standpoint -No plans for operative intervention at this time -Patient can follow-up in the office with Dr. Latif in 7-10 days for evaluation of infected sebaceous cyst at that time -Discussed with Dr. Navarrete -Discussed plan with Dr. Latif -Thank you for this consult Attending Note - Dr. Latif Patient seen and examined Inflamed sebaceous cyst; on antibiotics. No sepsis or drainage; uncomfortable to lay back against Will see in office 1 week; if not subsiding, will I&D in office The exam, history, and the medical decision-making described in the above note were completed with the assistance of the mid-level provider. I reviewed and agree with the findings presented. I attest that I had a [id number] encounter with the patient on the same day, and personally performed and documented my assessment and findings in the medical record. Discussed Condition With Edith Marques Dr., Ms. Jul 23, 2016 11:43 Miguel Ángel Latif MD Jul 23, 2016 13:43
--- NOTE | 2016-07-23 12:38 | PD.CARD.PN ---
Subjective Subjective Remarks No chest pain, no shortness of breath Objective Medications Current Medications Medications (Trade) Dose Ordered Sig/Luke Route Start Time Stop Time Status Last Admin (Synthroid) 112 mcg DAILY@0600 PO 07/21/16 06:00 07/23/16 06:19 Venlafaxine HCl 150 mg 150 mg DAILY PO 07/21/16 09:00 07/23/16 09:22 (NS 1000 ml Inj) 1,000 ml @ 42 mls/hr [id number] IV 07/21/16 03:00 07/22/16 02:49 (NS Flush) 2 ml UNSCH PRN IV FLUSH 07/21/16 03:00 (NS Flush) 2 ml BID IV FLUSH 07/21/16 09:00 07/23/16 09:21 (Tylenol) 650 mg Q4H PRN PO 07/21/16 03:00 07/23/16 09:31 (Zofran Inj) 4 mg Q6H PRN IVP 07/21/16 03:00 (Narcan Inj) 0.4 mg UNSCH PRN IV 07/21/16 03:00 (Milk Of Magnesia Liq) 30 ml Q12H PRN PO 07/21/16 03:00 (Dulcolax Supp) 10 mg DAILY PRN RECTAL 07/21/16 03:00 (Pravachol) 40 mg DAILY PO 07/21/16 09:00 07/23/16 09:22 (Nitroglycerin 2% Oint) 0.5 inch Q6HR TOPICAL 07/21/16 06:00 07/22/16 05:43 Carvedilol 3.125 mg 3.125 mg Q12HR PO 07/21/16 09:45 07/23/16 09:22 (Ancef Inj/NS Inj) 100 ml @ 200 mls/hr Q8H IV 07/21/16 16:00 07/23/16 09:21 (D50w (Vial) Inj) 50 ml UNSCH PRN IV 07/21/16 19:00 (Glucagon Inj) 1 mg UNSCH PRN OTHER 07/21/16 19:00 (Plavix) 75 mg DAILY PO 07/22/16 13:45 Hold 07/22/16 15:39 (Neurontin) 600 mg BID PO 07/22/16 21:00 07/23/16 09:22 (Prinivil) 20 mg DAILY PO 07/23/16 09:00 07/23/16 09:27 Vital Signs / I&O Vital Signs Date Time Temp Pulse Resp B/P Pulse Ox O2 Delivery O2 Flow Rate FiO2 07/23/16 10:36 99 21 07/23/16 10:00 56 07/23/16 09:00 62 07/23/16 08:00 88 07/23/16 08:00 98.1 62 20 144/83 97 07/23/16 07:00 100 07/23/16 06:00 78 07/23/16 05:00 61 07/23/16 04:00 62 07/23/16 03:30 97.7 87 16 141/87 94 07/23/16 03:00 63 07/23/16 02:00 63 07/23/16 01:00 60 07/23/16 00:00 66 07/22/16 23:40 97.4 64 16 142/83 95 07/22/16 23:00 68 07/22/16 22:00 72 07/22/16 21:00 68 07/22/16 20:00 72 07/22/16 19:30 97.9 69 16 151/90 97 07/22/16 19:00 70 07/22/16 18:15 60 07/22/16 17:31 91 21 07/22/16 17:00 61 07/22/16 16:07 84 07/22/16 15:34 70 07/22/16 15:00 98.8 70 20 143/76 91 07/22/16 14:08 63 07/22/16 13:37 64 I/O 07/22/16 07/22/16 07/22/16 07/23/16 07/23/16 07/23/16 07:00 15:00 23:00 07:00 15:00 23:00 Intake Total 580 ml 480 ml 580 ml Output Total 900 ml 1300 ml 650 ml Balance -320 ml -820 ml -70 ml Intake Oral 480 ml 480 ml 480 ml IV Total 100 ml 100 ml Output Urine Total 900 ml 1300 ml 650 ml # Bowel Movements 0 0 Physical Exam GENERAL: NAD SKIN: Warm and dry. HEAD: Atraumatic. Normocephalic. EYES: Pupils equal and round. No scleral icterus. No injection or drainage. ENT: No nasal bleeding or discharge. Mucous membranes pink and moist. NECK: Trachea midline. No JVD. CARDIOVASCULAR: Regular rate and rhythm. RESPIRATORY: No accessory muscle use. Clear to auscultation. Breath sounds equal bilaterally. GASTROINTESTINAL: Abdomen soft, non-tender, nondistended. Hepatic and splenic margins not palpable. MUSCULOSKELETAL: Extremities without clubbing, cyanosis, or edema. No obvious deformities. Right radial no hematoma, neurovascularly intact distally NEUROLOGICAL: Awake and alert. No obvious cranial nerve deficits. Motor grossly within normal limits. Five out of 5 muscle strength in the arms and legs. Normal speech. PSYCHIATRIC: Appropriate mood and affect; insight and judgment normal. Laboratory Laboratory Tests Test 07/23/16 06:10 White Blood Count 7.1 TH/MM3 Red Blood Count 3.90 MIL/MM3 Hemoglobin 11.9 GM/DL Hematocrit 36.1 % Mean Corpuscular Volume 92.7 FL Mean Corpuscular Hemoglobin 30.5 PG Mean Corpuscular Hemoglobin 32.9 % Concent Red Cell Distribution Width 13.9 % Platelet Count 153 TH/MM3 Mean Platelet Volume 10.1 FL Neutrophils (%) (Auto) 55.7 % Lymphocytes (%) (Auto) 28.0 % Monocytes (%) (Auto) 10.0 % Eosinophils (%) (Auto) 5.1 % Basophils (%) (Auto) 1.2 % Neutrophils # (Auto) 4.0 TH/MM3 Lymphocytes # (Auto) 2.0 TH/MM3 Monocytes # (Auto) 0.7 TH/MM3 Eosinophils # (Auto) 0.4 TH/MM3 Basophils # (Auto) 0.1 TH/MM3 CBC Comment DIFF FINAL Differential Comment Sodium Level 142 MEQ/L Potassium Level 3.7 MEQ/L Chloride Level 108 MEQ/L Carbon Dioxide Level 26.0 MEQ/L Anion Gap 8 MEQ/L Blood Urea Nitrogen 10 MG/DL Creatinine 0.54 MG/DL Estimat Glomerular Filtration 113 ML/MIN Rate Random Glucose 94 MG/DL Calcium Level 8.8 MG/DL Assessment and Plan Problem List: (1) NSTEMI (non-ST elevated myocardial infarction) (2) NICM (nonischemic cardiomyopathy) (3) Dyspnea (4) Diabetes (5) CHF (congestive heart failure) (6) Chest pain Assessment and Plan 1) Catheterization showing no significant disease Con't medical management ASA allergy, so will place on Plavix 2) NICM EF 30-35% LILIANA/Coreg 3) Needs outpt follow-up, will call insurance to see what embedded software manager they recommend Repeat echo in 3 months, if still low EF on optimal meds then consider ICD 4) Cardiovascularly stable for discharge Problem Qualifiers (1) Diabetes: Qualified Code: E11.42 - Type 2 diabetes mellitus with diabetic polyneuropathy , without long-term current use of insulin Baldomero Baron DO Jul 23, 2016 12:38
[2016-07-23] MEDS ORDERED: PRAV40TA PO (14:10)
[2016-07-23] MEDS ORDERED: CARV3.125 PO (14:10)
[2016-07-23] MEDS ORDERED: CEPH-460 PO (14:10)
[2016-07-23] MEDS ORDERED: PLAV75TA29 PO (14:10)
[2016-07-23] MEDS ORDERED: METF500T PO (14:10)
[2016-07-23] MEDS ORDERED: LISI-515 PO (14:10)
--- NOTE | 2016-07-23 14:13 | HHI.DCPOC ---
Discharge Care Plan Diagnosis: (1) CHF (congestive heart failure) (2) Chest pain (3) Elevated troponin (4) Diabetes (5) Infected sebaceous cyst (6) Diabetic neuropathy (7) CAD (coronary artery disease) (8) Hypothyroidism (9) Tobacco abuse (10) HTN (hypertension) Goals to Promote Your Health * To prevent worsening of your condition and complications * To maintain your health at the optimal level Directions to Meet Your Goals Take your medications as prescribed Follow your dietary instruction Follow activity as directed Keep your appointments as scheduled Take your immunizations and boosters as scheduled If your symptoms worsen call your PCP, if no PCP go to Urgent Care Center or Emergency Room Smoking is Dangerous to Your Health. Avoid second hand smoke Call the 24-hour hour crisis hotline for domestic abuse at Osvaldo Martin MD Jul 23, 2016 14:13
--- NOTE | 2016-07-23 14:18 | HHI.DS ---
Discharge Summary Admission Date Jul 21, 2016 at 03:05 Discharge Date: Jul 23, 2016 Admitting Diagnosis NSTEMI (1) Chest pain ICD Code: R07.9 Diagnosis: Principal (2) Elevated troponin ICD Code: R74.8 Diagnosis: Principal (3) Diabetes ICD Code: E11.9 Diagnosis: Secondary (4) HTN (hypertension) ICD Code: I10 Diagnosis: Secondary (5) Hypothyroidism ICD Code: E03.9 Diagnosis: Secondary (6) Tobacco abuse ICD Code: Z72.0 Diagnosis: Secondary (7) Diabetic neuropathy ICD Code: E11.40 Diagnosis: Secondary (8) Infected sebaceous cyst ICD Code: L72.3 Diagnosis: Principal Procedures sp cardiac ctaheterization Brief History - From Admission Written by Michell Whelan, acting as scribe for Dr. Marte on 07/21/16 at 04: 29. This is a 66-year-old female patient with a past medical history which includes hypertension, hyperlipidemia, diabetes mellitus type 2 hypothyroidism and severe persistent asthma. Patient reports that she began to have left sided chest pain. Patient reports the chest pain started approximately 9 PM 2016. The patient describes chest pain left anterior tightness with intermittent sharp pains. Chest pain radiated to the back and left side of her jaw associated with nausea and shortness of breath. Patient reports her asthma has been uncontrolled recently due to mold in her home. Patient reports she uses Symbicort twice a day and continue to use her albuterol rescue inhaler multiple times throughout the day. Patient has also noticed a dry nonproductive cough for the past 3 days. Patient denies fevers chills diarrhea constipation. Patient is a chronic tobacco user and continues to smoke approximately 10 cigarettes per day. Initial EKG done at [facility] reviewed and revealed sinus rhythm rate of 82 bpm with left bundle branch block. Patient does not have prior EKGs on record and is unaware of a left bundle branch block in the past. CBC/BMP: 07/23/16 0610 07/23/16 0610 Significant Findings Laboratory Tests Test 07/21/16 07/21/16 07/21/16 07/22/16 03:30 08:42 10:47 05:36 Troponin I 0.13 NG/ML 0.17 NG/ML 0.11 NG/ML (0.02-0.05) (0.02-0.05) (0.02-0.05) Red Blood Count 3.95 MIL/MM3 3.84 MIL/MM3 (4.00-5.30) (4.00-5.30) Platelet Count 145 TH/MM3 146 TH/MM3 (150-450) (150-450) Monocytes (%) (Auto) 11.1 % 9.3 % (0.0-8.0) (0.0-8.0) Eosinophils (%) (Auto) 4.5 % (0.0-4.0) 5.9 % (0.0-4.0) Creatinine 0.49 MG/DL (0.50-1.00) Calcium Level 8.4 MG/DL 8.4 MG/DL (8.5-10.1) (8.5-10.1) Aspartate Amino Transf 14 U/L (15-37) (AST/SGOT) Total Protein 6.1 GM/DL (6.4-8.2) Albumin 3.2 GM/DL (3.4-5.0) Eosinophils # (Auto) 0.5 TH/MM3 (0-0.4) Chloride Level 108 MEQ/L (98-107) Test 07/23/16 06:10 Red Blood Count 3.90 MIL/MM3 (4.00-5.30) Monocytes (%) (Auto) 10.0 % (0.0-8.0) Eosinophils (%) (Auto) 5.1 % (0.0-4.0) Chloride Level 108 MEQ/L (98-107) Imaging Last Impressions Soft Tissue Ultrasound 07/21/16 0000 Signed Impressions: Service Date/Time: Thursday, July 21, 2016 22:04 - CONCLUSION: Small complex fluid collection possible abscess. Juan C Spivey MD PE at Discharge GENERAL: This is a well-nourished, well-developed patient, in no apparent distress at this time. Patient denies chest pain but has continued back pain SKIN: No rashes, ecchymoses. there is a tender nodule with erythema and warmth in the back very tender to palpation and fluctuance. HEAD: Atraumatic. Normocephalic. No temporal or scalp tenderness. EYES: Extraocular motions intact. No scleral icterus. No injection or drainage. CARDIOVASCULAR: Regular rate and rhythm without murmur gallop or rub RESPIRATORY: Clear to auscultation. Breath sounds equal bilaterally. No wheezes , rales, or rhonchi. GASTROINTESTINAL: Abdomen soft, non-tender, nondistended. No hepato-splenomegaly , or palpable masses. No guarding. MUSCULOSKELETAL: Extremities without clubbing, cyanosis, or edema. No joint tenderness, effusion, or edema noted. No calf tenderness. Negative Homans sign bilaterally. NEUROLOGICAL: Awake and alert. No focal deficits appreciated. Motor and sensory grossly within normal limits. Five out of 5 muscle strength in all muscle groups. Normal speec Pt update on day of discharge Classic case with Ban López from general surgery who believes this is an infected sebaceous cyst. Recommended discharging the patient on oral antibiotics and to follow-up with Dr. Latif in 7-10 days. Patient denies any fevers or chills, denies any further chest pains, denies shortness of breath. I will discharge patient on by mouth Keflex and other cardiac medications recommended by sales team manager. Hospital Course 66-year-old diabetic, hypertensive, hyperlipidemic female, presents with left- sided chest pain. Initial EKG done at [facility] the toenail reviewed revealed sinus rhythm at a rate of 82 bpm with a left bundle branch block. There are no prior EKGs on record and the patient isn't aware of a left bundle branch block in the past. Initially the [facility] call cardiology and discussed the case with Dr. Li who agreed to see the patient in consultation and evaluate in a.m. for possible cardiac catheterization. 1) NSTEMI Cardiology consulted. Patient started on Lovenox 1 mg/kg twice a day and Nitropaste every 6 hours serial troponins initially trended up from 0.13-0.17 and then trended down to 0.11. The patient had a 2-D echocardiogram which showed an estimated ejection fraction the range of 30-35%, akinetic mid anterolateral wall motion. Akinetic mid inferolateral wall motion with scar. The left atrial size is mildly dilated. There is moderate mitral valve regurgitation. There is mild tricuspid valve regurgitation. The patient underwent cardiac catheterization on 07/22 were minimal CAD was found. The case was discussed with Dr. Baron at length. The patient has been started on LILIANA inhibitor, statin, carvedilol, and Plavix since the patient is allergic to aspirin. (2) Elevated troponin As above (3) Diabetes Plan: Patient placed on SSI with insulin NovoLog. Blood sugar remained stable during hospitalization. Hemoglobin A1c 6.0. Metformin held during admission. Patient will restart metformin once discharged (4) HTN (hypertension) Blood pressure remained stable during hospital cessation. Lisinopril 20 mg by mouth daily was continued. Coreg was started. (5) Hypothyroidism Continue levothyroxine. (6) Tobacco abuse Advised smoking cessation. (7) Diabetic neuropathy Patient's gabapentin was resumed during hospital stay. (8) infected sebaceous cyst Plan: Patient has been having a skin soft tissue induration in the back which in the past few days have been progressively gaping getting more painful. Soft tissue ultrasound was performed that showed possible abscess. Surgery was consulted and patient was treated empirically with IV cefazolin which caused some interval improvement of the abscess. As per general surgery recommendations, likely sebaceous cyst which is infected. Recommended sending home on oral antibiotics and to follow-up with Dr. Latif in 7-10 days for incision and debridement. Pt Condition on Discharge: Stable Discharge Disposition: Discharge Home Discharge Time: > 30 minutes Discharge Instructions DIET: Follow Instructions for: Heart Healthy Diet, Diabetic Diet Activities you can perform: Regular-No Restrictions Activities to Avoid: Strenuous Activity Follow up Referrals: PCP Follow-up - 2 Weeks Surgical - 1 Week with Miguel Ángel Latif MD New Medications: Cephalexin (Keflex) 500 Mg Cap 500 MG PO Q8H Infection #30 Ref 0 CAP Carvedilol (Coreg) 3.125 Mg Tab 3.125 MG PO Q12HR cardiomyopathy #62 Ref 1 TAB Clopidogrel (Plavix) 75 Mg Tab 75 MG PO DAILY Blood Clot Prevention #31 Ref 1 TAB Pravastatin (Pravachol) 40 Mg Tab 40 MG PO DAILY Cholesterol Management #31 Ref 1 TAB Continued Medications: Gabapentin (Gabapentin) 600 Mg Tab 600 MG PO BID diabetic neuropathy #60 Ref 0 TAB Levothyroxine (Levothyroxine) 112 Mcg Tab 112 MCG PO DAILY Thyroid #30 Ref 0 TAB Lisinopril (Lisinopril) 20 Mg Tab 20 MG PO DAILY #30 Ref 1 TAB (This prescription has been renewed) Metformin (Metformin) 500 Mg Tab 500 MG PO BIDPC With meals Blood Sugar Management #60 Ref 1 TAB (This prescription has been renewed) Venlafaxine (Effexor) 100 Mg Tab 150 MG PO DAILY #60 Ref 0 TAB Osvaldo Martin MD Jul 23, 2016 14:18
--- NOTE | 2016-07-25 11:40 | PQ ---
Physician Query Response Document PATIENT: ADAM YARBROUGH : 1950 ADMIT DATE: 07/21/2016 3:05 AM DISCH DATE: 07/23/2016 3:15 PM RESPONDING PROVIDER #: [email or web address] QUERY TEXT: Clarification of Clinical Diagnostic Findings Please clarify documentation or clinical relevance for the clinical / diagnostic findings or whether those are insignificant or unable to be further specified. 1) NSTEMI PRESENT 2) NSTEMI RULED OUT 3) OTHER PLEASE EXPLAIN PLEASE CALL [facility] @ [phone] FOR ASSISTANCE The patient's Clinical Indicators include: PER CARDIOLOGY PROGRESS NOTE 07/22/16: Problem List: (1) NSTEMI (non-ST elevated myocardial infarction) 1) Catheterization showing no significant disease PER ATTENDING PROGRESS NOTE 06/21/16: Problem List: (1) Chest pain (2) Elevated troponin CARDIAC CATHETERIZATION REPORT: MINIMAL CAD, LEFT BUNDLE BRANCH BLOCK, NEW SYSTOLIC HEART FAILURE WITH NON ISCHEMIC CARDIOMYOPATHY TROPONINS= 0.13, 0.17, 0.11 Query created by: Madison Huber on 07/23/2016 10:27 AM RESPONSE TEXT: NSTEMI present QUERY TEXT: CHF Acuity and Type Systolic Congestive Heart Failure is documented in the Medical Record. Please document the ACUITY ( includes probable or suspected) Such as: Acuity: -- Acute -- Chronic -- Acute on chronic -- Other, please specify PLEASE CALL [facility] @ EXT [phone] FOR ASSISTANCE The patient's Clinical Indicators include: PER ATTENDING PROGRESS NOTE 07/22/16: The patient had a 2-D echocardiogram which showed an estimated ejection fraction the range of 30-35%, akinetic mid anterolateral wall motion. Akinetic mid inferolateral wall motion with scar. The left atrial size is mildly dilated. PER CARDIOLOGY PROGRESS NOTE 07/22/16: (5) CHF (congestive heart failure) Query created by: Madison Huber on 07/23/2016 10:45 AM RESPONSE TEXT: Acute on chronic systolic heart failure Electronically signed by: Osvaldo Chavira MD 07/25/2016 11:36 AM
== END 2016-07-23 15:15 | disposition home or self-care (01) | DRG 280 ==
LOC: NEDDLT 02:29 → HCIN 02:39 → OBSVTOIN 03:05
PROVIDERS: ADMIT Hospitalist; ATTEND Hospitalist
PROC: 4A023N7 Measurement of Cardiac Sampling and Pressure, Left Heart, Percutaneous Approach (ICD-10-PCS; 2016-07-22)
PROC: B2111ZZ Fluoroscopy of Multiple Coronary Arteries using Low Osmolar Contrast (ICD-10-PCS; principal; 2016-07-22 11:00)
DX: I21.4 Non-ST elevation (NSTEMI) myocardial infarction (principal); I50.23 Acute on chronic systolic (congestive) heart failure; I42.9 Cardiomyopathy, unspecified; E11.42 Type 2 diabetes mellitus with diabetic polyneuropathy; I44.7 Left bundle-branch block, unspecified; Z79.84 Long term (current) use of oral hypoglycemic drugs; I10 Essential (primary) hypertension; E03.9 Hypothyroidism, unspecified; E78.5 Hyperlipidemia, unspecified; J45.50 Severe persistent asthma, uncomplicated; F17.210 Nicotine dependence, cigarettes, uncomplicated; L72.3 Sebaceous cyst; I08.1 Rheumatic disorders of both mitral and tricuspid valves; Z88.6 Allergy status to analgesic agent
CPT/HCPCS: 71010; 76937; 76999; 80048; 80053; 82550; 82948; 83036; 83735; 83880; 84100; 84484; 85025; 85379; 85610; 85730; 93005; 93306; 93454; 96372; 99281; C1769; C1893; J0690; J1644; J1650; J2250; J3010; J7030; Q9967

== ENCOUNTER 2017-10-11 23:43 | Inpatient (IN) ==
--- NOTE | 2017-10-12 00:19 | ED ---
HPI General Chief Complaint: Chest Pain Stated Complaint: Chest pain Time Seen by Provider: 10/11/17 23:45 History of Present Illness HPI narrative: This is a 67-year-old female with a history of hypertension, coronary artery disease, diabetes mellitus, hypothyroidism, presents today with chest pain. Patient reports left-sided 9 out of 10 chest pain. She reports it radiates to her back. She states it started this afternoon. When paramedics arrived, they administered 2 doses of sublingual nitroglycerin which brought her pain down to a 6-7 out of 10. She denies any nausea or diaphoresis. She denies any shortness of breath. She states this is similar to the pain that she had when she had an RI in July 2016. Complete Quality Measures for STEMI Alert Patients Related Data Home Medications Medication Instructions Recorded Confirmed clopidogrel [Plavix] 75 mg PO DAILY 10/12/17 10/12/17 levothyroxine 112 mcg PO DAILY 10/12/17 10/12/17 lisinopril 20 mg PO DAILY 10/12/17 10/12/17 metformin 500 mg PO DAILY 10/12/17 10/12/17 venlafaxine 150 mg PO DAILY 10/12/17 10/12/17 Allergies Allergy/AdvReac Type Severity Reaction Status Date / Time aspirin Allergy Severe Hives Verified 10/12/17 00:07 Review of Systems ROS: all other systems reviewed are negative Constitutional Reports system reviewed and no additional complaints, except as docu Eyes Reports system reviewed and no additional complaints, except as docu ENT Reports system reviewed and no additional complaints, except as docu Cardiovascular Reports chest pain, Denies palpitations and Denies dyspnea Respiratory Denies cough and Denies dyspnea Gastrointestinal Denies abdominal pain, Denies nausea and Denies vomiting Genitourinary Reports system reviewed and no additional complaints, except as docu Musculoskeletal Reports system reviewed and no additional complaints, except as docu and Denies other (No calf tenderness or leg swelling.) Neurologic Reports system reviewed and no additional complaints, except as docu Endocrine Reports system reviewed and no additional complaints, except as docu [facility] Medical History Medical History Depression (Acute) Diabetes (Acute) Gall bladder disease (Acute) Hx of myocardial infarction (Acute) Hypertension (Acute) Hypothyroid (Acute) Surgical History Surgical History H/O hysterectomy with oophorectomy (Acute) Social History Social History Substance History: No History of Abuse Second Hand Smoke Exposure: Yes Smoking Status: Current every day smoker Tobacco Type: Cigarettes How Often Do You Have a Drink Containing Alcohol: 2 to 3 times a week Recent Travel in [facility] within the Last 8 Weeks: No Recent Out of Country Travel within the Last 8 Weeks: No Exam Narrative Exam Narrative: GENERAL: Well-developed well-nourished female in no acute respiratory distress. SKIN: Focused skin assessment warm/dry. HEAD: Atraumatic. Normocephalic. EYES: Extraocular muscles were intact no scleral icterus. No injection or drainage. ENT: No nasal bleeding or discharge. Mucous membranes pink and moist. NECK: Trachea midline. Supple. CARDIOVASCULAR: Regular rate and rhythm. No murmur appreciated. RESPIRATORY: No accessory muscle use. Clear to auscultation. Breath sounds equal bilaterally. GASTROINTESTINAL: Abdomen soft, non-tender, nondistended. Hepatic and splenic margins not palpable. MUSCULOSKELETAL: No obvious deformities. No clubbing. No cyanosis. No edema. NEUROLOGICAL: Awake and alert. No obvious cranial nerve deficits. Motor grossly within normal limits. Normal speech. PSYCHIATRIC: Appropriate mood and affect; insight and judgment normal. Course Initial Documented Vital Signs Temperature 98.1 F 10/11/17 23:54 Pulse Rate 85 10/11/17 23:54 Respiratory Rate 16 10/11/17 23:54 Blood Pressure 163/97 H 10/11/17 23:54 Pulse Oximetry 98 10/11/17 23:54 Last Documented Vital Signs Temperature 98.1 F 10/11/17 23:54 Pulse Rate 85 10/11/17 23:54 Respiratory Rate 16 10/11/17 23:54 Blood Pressure 163/97 H 10/11/17 23:54 Pulse Oximetry 98 10/12/17 00:25 Medical Decision Making [facility] Narrative Medical decision making narrative: This is a 67-year-old female with history of hypertension, coronary artery disease, tobacco use, diabetes mellitus, presents today with complaints of chest pain starting yesterday afternoon. It is after midnight. Patient reported as a 9 out of 10. She was given nitro in the field which decreased it significantly. She is currently at just below a 1. EKG showed LVH. Troponin is elevated at 0.09. She was not given aspirin as she is allergic to aspirin. She has been started on heparin drip after a 4000 unit bolus. She will be admitted to the telemetry floor/stepdown unit. [facility]. Medical Screen Exam Complete: Yes Emergency Medical Condition: Yes Differential Diagnosis Differential Diagnosis: ACS versus GERD versus muscular skeletal pain versus pulmonary embolus Lab Data Result diagrams: 10/12/17 00:20 10/12/17 00:20 Lab Results 10/12/17 10/12/17 Range/Units 00:20 00:20 WBC 6.4 (4.0-11.0) th/mm3 RBC 3.94 L (4.00-5.30) mil/mm3 Hgb 12.7 (11.6-15.3) gm/dL Hct 37.3 (35.0-46.0) % MCV 94.6 (80.0-100.0) fL MCH 32.1 (27.0-34.0) pg MCHC 34.0 (32.0-36.0) % RDW 13.5 (11.6-17.2) % Plt Count 152 (150-450) th/mm3 MPV 10.1 (7.0-11.0) fL Neut % (Auto) 41.6 (16.0-70.0) % Lymph % (Auto) 44.0 (9.0-44.0) % [place] % (Auto) 7.1 (0.0-8.0) % Eos % (Auto) 6.3 H (0.0-4.0) % Baso % (Auto) 1.0 (0.0-2.0) % Neut # (Auto) 2.7 (1.8-7.7) th/mm3 Lymph # (Auto) 2.8 (1.0-4.8) th/mm3 [place] # (Auto) 0.5 (0.0-0.9) th/mm3 Eos # (Auto) 0.4 (0.0-0.4) th/mm3 Baso # (Auto) 0.1 (0.0-0.2) th/mm3 WBC Differential . Differential Comment Auto diff final Sodium 145 (136-145) meq/L Potassium 4.1 (3.5-5.1) meq/L Chloride 111 H (98-107) meq/L Carbon Dioxide 22.9 (21.0-32.0) meq/L Anion Gap 11 (5-15) meq/L BUN 14 (7-18) mg/dL Creatinine 0.88 (0.50-1.00) mg/dL Estimated GFR 64 L (>89) mL/min Random Glucose 100 (74-106) mg/dL Calcium 7.7 L (8.5-10.1) mg/dL Total Bilirubin 0.3 (0.2-1.0) mg/dL AST 19 (15-37) U/L ALT 15 (10-53) U/L Alkaline Phosphatase 74 (45-117) U/L Total Creatine Kinase 67 (26-192) U/L Troponin I 0.09 H (0.02-0.05) ng/mL Total Protein 6.1 L (6.4-8.2) g/dL Albumin 3.0 L (3.4-5.0) g/dL Imaging Data Radiologist's impression: Chest X-Ray 10/12/17 00:05 CONCLUSION: Patchy bilateral faint infiltrate. Discharge Plan Discharge Disposition Patient Disposition: 30 Still Patient Discharge Details Diagnosis: Non-ST elevated myocardial infarction (non-STEMI), HTN (hypertension), Diabetes mellitus, Tobacco use Physicians Team ED Provider: Rene Garcia Primary Care Provider: UNKNOWN, Rxs /Orders / Referrals /Forms Prescriptions: No Action metformin 500 mg Tablet 500 mg PO DAILY RF: 0 lisinopril 20 mg Tablet 20 mg PO DAILY RF: 0 venlafaxine 150 mg Capsule,Extended Release 24hr 150 mg PO DAILY RF: 0 clopidogrel [Plavix] 75 mg Tablet 75 mg PO DAILY RF: 0 levothyroxine 112 mcg Tablet 112 mcg PO DAILY RF: 0 Discharge Instructions Patient Printed Instructions: Chest Pain (ED) Status ED Status: With Doctor
--- NOTE | 2017-10-12 00:37 | XR ---
EXAM DATE: 10/12/2017 12:28 AM EDT AGE/SEX: 67 years / Female INDICATIONS: Chest pain. CLINICAL DATA: This is the patient's initial encounter. Patient reports that signs and symptoms have been present for 1 day and indicates a pain score of 3/10. MEDICAL/SURGICAL HISTORY: Arthritis. Hypothyroidism. Hypertension. None. COMPARISON: [facility], CHEST SINGLE AP, 07/20/2016. . FINDINGS: Very mild patchy air space opacities are seen of both lungs, primarily upper lobe on the right and ba silar on the left. No dense or confluent consolidation. No pleural effusion or pneumothorax. Heart size stable, within normal limits. CONCLUSION: Patchy bilateral faint infiltrate. Electronically signed by: Jean-Paul Nuñez MD 10/12/2017 12:36 AM EDT
[2017-10-12 00:55] LABS: Baso # (Auto) 0.1 th/mm3 (0.0-0.2); Eos # (Auto) 0.4 th/mm3 (0.0-0.4); Eos % (Auto) 6.3 % (0.0-4.0); Hematocrit 37.3 % (35.0-46.0); Hemoglobin 12.7 gm/dL (11.6-15.3); Lymph # (Auto) 2.8 th/mm3 (1.0-4.8); Mean Corpuscular Hemoglobin 32.1 pg (27.0-34.0); Mean Corpuscular Volume 94.6 fL (80.0-100.0); Mean Platelet Volume 10.1 fL (7.0-11.0); Mono # (Auto) 0.5 th/mm3 (0.0-0.9); Mono % (Auto) 7.1 % (0.0-8.0); Neut # (Auto) 2.7 th/mm3 (1.8-7.7); Neut % (Auto) 41.6 % (16.0-70.0); Platelet Count 152 th/mm3 (150-450); Red Blood Count 3.94 mil/mm3 (4.00-5.30); Red Cell Distribution Width 13.5 % (11.6-17.2); White Blood Count 6.4 th/mm3 (4.0-11.0)
[2017-10-12 01:27] LABS: Alanine Aminotransferase 15 U/L (10-53); Alkaline Phosphatase 74 U/L (45-117); Anion Gap 11 meq/L (5-15); Aspartate Aminotransferase 19 U/L (15-37); Blood Urea Nitrogen 14 mg/dL (7-18); Calcium 7.7 mg/dL (8.5-10.1); Carbon Dioxide 22.9 meq/L (21.0-32.0); Chloride 111 meq/L (98-107); Creatine Kinase 67 U/L (26-192); Glomerular Filtration Rate 64 mL/min (>89); Glucose,Random 100 mg/dL (74-106); Potassium 4.1 meq/L (3.5-5.1); Sodium 145 meq/L (136-145); Total Protein 6.1 g/dL (6.4-8.2); Troponin I 0.09 ng/mL (0.02-0.05)
[2017-10-12] MEDS ORDERED: Heparin 10,000 UNITS/10 ML Vial (for IV use) IV.PUSH STA (01:40)
[2017-10-12] MEDS ORDERED: Bisacodyl 10 MG Supp RECTAL PRN (01:53)
[2017-10-12] MEDS ORDERED: Dextrose 50% in Water 50 ML Vial IV.PUSH PRN (01:57)
[2017-10-12] MEDS ORDERED: Sod Chloride 0.9% Inj 1,000 ML IV.CONT SCH (02:00)
[2017-10-12] MEDS ORDERED: Acetaminophen 500 MG Tablet PO ONE (02:08)
[2017-10-12] MEDS: Heparin Drip 25,000 UNIT/250 ML BAG IV.CONT PRN (02:46)
[2017-10-12 03:24] LABS: Activated Partial Thrombo Time 24.3 sec (24.3-30.1)
[2017-10-12 03:31] LABS: Troponin I 0.17 ng/mL (0.02-0.05)
--- NOTE | 2017-10-12 05:31 | P.HPIM ---
History of Present Illness Primary Care Physician: UNKNOWN History of Present Illness: 67-year-old female with a history of nonischemic cardiomyopathy,, diabetes mellitus, hypothyroidism who presents with a sudden onset, constant, nonpleuritic, sharp substernal chest pain the afternoon of 10/11. Upon EMS arrival, patient received 2 doses of sub-lingual nitroglycerin with improvement chest pain. Patient subsequently received nitro paste with marketed improvement in chest pain. Patient denies any recent fevers, chills, shortness of breath. She says she is feeling fatigued since pain began this afternoon. Patient presented with similar symptoms in July 2016. Echocardiogram showed ejection fraction 3035%. Patient underwent cardiac catheterization which showed minimal coronary artery disease. Patient was started on medical management for cardiomyopathy at that time with plan to obtain repeat echocardiogram in 3 months. Inpatient Certification: I certify that the inpatient services were ordered in accordance with Medicare regulations governing the order. This includes certification that hospital inpatient services are reasonable and necessary and in the case of services not specified as inpatient-only under 42 CFR 419.22(n), that they are appropriately provided as inpatient services in accordance to with the 2-midnight benchmark under 43 CFR 412.3(e) Review of Systems All other systems reviewed negative except as stated in HPI PMFSH - History History Provided By: Order Packer / EMT - Medical History Medical History: Medical History (Last Updated 10/12/17 @ 00:02 by Shahnaz Rider) Depression Diabetes Gall bladder disease Hx of myocardial infarction Hypertension Hypothyroid - Surgical History Surgical History: Surgical History (Last Updated 10/12/17 @ 00:02 by Shahnaz Rider) H/O hysterectomy with oophorectomy - Family History Family History: Family History (Last Updated 10/12/17 @ 05:30 by Haja Phelps MD) Father Family estrangement Mother Coronary artery disease - Tobacco History Second Hand Smoke Exposure: Yes Tobacco Use In Past 30 Days: Yes Smoking Status: Current every day smoker Tobacco Type: Cigarettes - Alcohol History How Often Do You Have a Drink Containing Alcohol: 2 to 3 times a week - Substance Use History Substance History: No History of Abuse - Travel History Recent Travel in the [place] Within the Last 8 Weeks: No Recent Travel Out of the Country Within the Last 8 Weeks: No - Immunization History Tetanus Immunization: Unsure Hx Influenza Vaccine This Season: Yes Medications and Allergies Active Medications: Active Medications Al Hydroxide/Mg Hydroxide (Milk Of Jayda Gregory) 30 ml PO Q12H PRN PRN Reason: Mild Constipation Bisacodyl (Dulcolax Supp) 10 mg RECTAL DAILY PRN PRN Reason: SEVERE CONSITIPATION Clopidogrel Bisulfate (Plavix) 75 mg PO DAILY [facility] Dextrose (D50w Vial) 50 ml IV.PUSH UNSCH PRN PRN Reason: PER HYPOGLYCEMIA PROTOCOL Glucagon (Glucagon Inj) 1 mg OTHER PRN PRN PRN Reason: for Hypoglycemia Protocol Heparin Sodium/Dextrose (Heparin/D5w 25,000 U/250 Ml) 25,000 unit in 250 mls @ 0 mls/hr IV.CONT TITRATE PRN; Protocol PRN Reason: Per Protocol Last Admin: 10/12/17 02:46 Dose: 900 units/hr, 9 mls/hr Sodium Chloride (Ns Inj) 1,000 mls @ 40 mls/hr IV.CONT .Q24H [facility] Last Admin: 10/12/17 03:05 Dose: 40 mls/hr Insulin Aspart (Novolog Insulin Correctional Sugar Inj) 0 unit SQ ACHS [facility]; Protocol Lactulose (Lactulose Liq) 30 ml PO DAILY PRN PRN Reason: SEVERE CONSITIPATION Levothyroxine Sodium (Synthroid) 112 mcg PO DAILY@0600 [facility] Lisinopril (Prinivil) 20 mg PO DAILY [facility] Sennosides (Senokot) 17.2 mg PO Q12H PRN PRN Reason: Moderate Constipation Sodium Chloride (Ns Flush) 2 ml IV.FLUSH BID [facility] Sodium Chloride (Ns Flush) 2 ml IV.FLUSH PRN PRN PRN Reason: FLUSH AFTER USING IV ACCESS Venlafaxine HCl (Effexor Xr) 150 mg PO DAILY [facility] Allergies Allergy/AdvReac Type Severity Reaction Status Date / Time aspirin Allergy Severe Hives Verified 10/12/17 00:07 Home Medications Medication Instructions Recorded Confirmed Type clopidogrel [Plavix] 75 mg PO DAILY 10/12/17 10/12/17 History levothyroxine 112 mcg PO DAILY 10/12/17 10/12/17 History lisinopril 20 mg PO DAILY 10/12/17 10/12/17 History metformin 500 mg PO DAILY 10/12/17 10/12/17 History venlafaxine 150 mg PO DAILY 10/12/17 10/12/17 History Exam Vital signs: Vital Signs 10/11/17 23:54 10/12/17 00:19 10/12/17 00:20 Temperature 98.1 F Pulse Rate 85 Respiratory Rate 16 Blood Pressure 163/97 H Pulse Oximetry 98 98 98 10/12/17 00:25 10/12/17 03:04 Temperature Pulse Rate 70 Respiratory Rate 18 Blood Pressure 129/70 Pulse Oximetry 98 98 Intake & Output 10/11/17 10/11/17 10/12/17 06:59 18:59 06:59 Weight 77.111 kg Narrative: GENERAL: Patient lying in bed. Appears comfortable. Alert and oriented 3. SKIN: Warm and dry. HEAD: Atraumatic. Normocephalic. EYES: Pupils equal and round. No scleral icterus. No injection or drainage. ENT: No nasal bleeding or discharge. Mucous membranes pink and moist. NECK: Trachea midline. No JVD. CARDIOVASCULAR: Regular rate and rhythm. RESPIRATORY: No accessory muscle use. Clear to auscultation. Breath sounds equal bilaterally. GASTROINTESTINAL: Abdomen soft, non-tender, nondistended. Hepatic and splenic margins not palpable. MUSCULOSKELETAL: Extremities without clubbing, cyanosis, or edema. No obvious deformities. NEUROLOGICAL: Awake and alert. No obvious cranial nerve deficits. Motor grossly within normal limits. Five out of 5 muscle strength in the arms and legs. Normal speech. PSYCHIATRIC: Appropriate mood and affect; insight and judgment normal. Results - Labs CBC & Chem 7: 10/12/17 00:20 10/12/17 00:20 Labs: Short CBC 10/12/17 Range/Units 00:20 WBC 6.4 (4.0-11.0) th/mm3 Hgb 12.7 (11.6-15.3) gm/dL Hct 37.3 (35.0-46.0) % Plt Count 152 (150-450) th/mm3 BMP 10/12/17 10/12/17 00:20 02:06 Sodium 145 Cancelled Potassium 4.1 Cancelled Chloride 111 H Cancelled Carbon Dioxide 22.9 Cancelled BUN 14 Cancelled Creatinine 0.88 Cancelled Calcium 7.7 L Cancelled Cardiac Enzymes 10/12/17 10/12/17 10/12/17 Range/Units 00:20 02:06 02:06 Total Creatine Kinase 67 Cancelled 71 (26-192) U/L Troponin I 0.09 H Cancelled 0.17 H (0.02-0.05) ng/mL Liver Function 10/12/17 Range/Units 00:20 Total Bilirubin 0.3 (0.2-1.0) mg/dL AST 19 (15-37) U/L ALT 15 (10-53) U/L Alkaline Phosphatase 74 (45-117) U/L Albumin 3.0 L (3.4-5.0) g/dL - Imaging Impressions Chest X-Ray 10/12/17 00:05 CONCLUSION: Patchy bilateral faint infiltrate. Caprini VTE Risk Assessment Caprini VTE Risk Assessment: Moderate/High Risk (score >= 2) Caprini Risk Assessment Model: Point Value = 1 Point Value = 2 Point Value = 3 Point Value = 5 Age 41-60 Minor surgery BMI > 25 kg/m2 Swollen legs Varicose veins or History of unexplained or recurrent spontaneous Oral contraceptives or hormone replacement Sepsis (< 1 month) Serious lung disease, including pneumonia (< 1 month) Abnormal pulmonary function Acute myocardial infarction Congestive heart failure (< 1 month) History of inflammatory bowel disease Medical patient at bed rest Age 61-74 Arthroscopic surgery Major open surgery (> 45 min) Laparoscopic surgery (> 45 min) Malignancy Confined to bed (> 72 hours) Immobilizing plaster cast Central venous access Age >= 75 History of VTE Family history of VTE Factor V Leiden Prothrombin [id number] Lupus anticoagulant Anticardiolipin antibodies Elevated serum homocysteine Heparin-induced thrombocytopenia Other congenital or acquired thrombophilia Stroke (< 1 month) Elective arthroplasty Hip, pelvis, or leg fracture Acute spinal cord injury (< 1 month) Prophylaxis Regimen: Total Risk Factor Score Risk Level Prophylaxis Regimen 0-1 Low Early ambulation 2 Moderate Order ONE of the following: *Sequential Compression Device (SCD) *Heparin 5000 units SQ BID 3-4 Higher Order ONE of the following medications: *Heparin 5000 units SQ TID *Enoxaparin/Lovenox 40 mg SQ daily (WT < 150 kg, CrCl > 30 mL/min) *Enoxaparin/Lovenox 30 mg SQ daily (WT < 150 kg, CrCl > 10-29 mL/min) *Enoxaparin/Lovenox 30 mg SQ BID (WT < 150 kg, CrCl > 30 mL/min) AND/OR *Sequential Compression Device (SCD) 5 or more Highest Order ONE of the following medications: *Heparin 5000 units SQ TID (Preferred with Epidurals) *Enoxaparin/Lovenox 40 mg SQ daily (WT < 150 kg, CrCl > 30 mL/min) *Enoxaparin/Lovenox 30 mg SQ daily (WT < 150 kg, CrCl > 10-29 mL/min) *Enoxaparin/Lovenox 30 mg SQ BID (WT < 150 kg, CrCl > 30 mL/min) AND *Sequential Compression Device (SCD) Assessment and Plan - Plan //Non-ST elevation [place] //History of nonischemic cardiomyopathy. Cardiac catheterization in July 2016 with no significant coronary artery disease, echocardiogram with EF 3035%. = EKG with no acute changes. Troponin 0 0.17. Chest pain resolved with nitro paste. = Status post aspirin. = Continue lisinopril, Plavix. Uncertain why patient is not on beta-gerry. Uncertain why patient is on Plavix if she has no coronary artery disease. = Placed on heparin drip, trend EKGs and troponins. Consult cardiology. Check echocardiogram //Hypothyroidism. Check TSH. Continue home Synthroid. //Diabetes mellitus. Appears to be diet controlled. Check A1c. .diabetic diet. Continue to monitor. Discussed Condition With: Patient, nurse, ED physician.
[2017-10-12] MEDS: Levothyroxine 112 MCG Tablet PO SCH (06:02)
[2017-10-12 06:16] LABS: Amphetamine Screen,Urine Neg (Neg); Barbiturate Screen,Urine Neg (Neg); Cannabinoid Screen,Urine Neg (Neg); Cocaine Screen,Urine Neg (Neg)
[2017-10-12 06:19] LABS: Opiate Screen,Urine Neg (Neg)
[2017-10-12 07:09] LABS: Hematocrit 35.2 % (35.0-46.0); Mean Corpuscular HGB Conc 34.1 % (32.0-36.0); Mean Corpuscular Volume 93.7 fL (80.0-100.0); Mean Platelet Volume 9.5 fL (7.0-11.0); Platelet Count 130 th/mm3 (150-450); Red Blood Count 3.75 mil/mm3 (4.00-5.30); Red Cell Distribution Width 13.7 % (11.6-17.2); White Blood Count 6.8 th/mm3 (4.0-11.0)
[2017-10-12 09:15] LABS: Troponin I 0.32 ng/mL (0.02-0.05)
[2017-10-12] MEDS: Insulin NovoLOG Aspart Correctional Sugar Inj SQ SCH ×4 (09:17→21:01)
[2017-10-12] MEDS: Lisinopril 20 MG Tablet PO SCH (09:36)
[2017-10-12] MEDS: Venlafaxine XR 75 MG Capsule PO SCH (09:37)
--- NOTE | 2017-10-12 12:07 | P.PNADD ---
Addendum to Inpatient Note Reason for Addendum: Additional Documentation (PLan for NUclear stress test today. Patient seen and examined. Reports some improvement of chest pain since admission)
[2017-10-12 12:28] LABS: Hemoglobin A1c 6.2 % (4.3-6.0)
--- NOTE | 2017-10-12 13:14 | MB ---
cc: Baldomero Baron DO DATE: 10/12/2017 REASON FOR CONSULTATION: Chest pain, elevated troponin. HISTORY OF PRESENT ILLNESS: Monique Cerda is a pleasant 67-year-old female whom I see in the office and presented to [facility] Emergency Room due to chest pain. She was recently in [place] for some time and she has been flying back and forth multiple times throughout the year to try to help out down there as she has family down there. While down there recently she had an episode which she felt was the flu and went to the hospital. She was started on antibiotics. Afterwards she started noticing some chest pains. Chest pain was sharp and stabbing, lasting seconds to minutes. She decided to wait until she got back here to the [facility] before coming to the hospital. Upon arrival here on 10/10/2017, she was feeling somewhat better and so she went about her normal day for the next few days with a plan to call my office to let them know about the episodes. Yesterday she was doing stuff around the house and she started noticing the pain. The pain was sharp and stabbing and similar to her episode where she presented last year and was found to have a nonischemic cardiomyopathy. Since that time,she has had a repeat echocardiogram in my office showing an ejection fraction of 35% to 40%, not requiring an ICD. Lastly, she previously was on beta gerry therapy, but has since stopped it herself due to significant fatigue since starting. PAST MEDICAL HISTORY: 1. Nonischemic cardiomyopathy. 2. Diabetes mellitus. 3. Hypothyroidism. 4. Depression. 5. History of myocardial infarction. 6. ALLERGIC REACTION TO ASPIRIN (AROUND THE AGE OF 40. SHE WAS GIVEN ASPIRIN AND UNDERWENT A RESPIRATORY ARREST). PAST SURGICAL HISTORY: 1. Cardiac catheterization (07/22/2016) minimal coronary artery disease globally. 2. Oophorectomy with hysterectomy. ALLERGIES: ASPIRIN. MEDICATIONS: 1. Venlafaxine 150 mg daily. 2. Synthroid 112 mcg daily. 3. Lisinopril 20 mg daily. 4. Plavix 75 mg daily. 5. Metformin 500 mg daily. FAMILY HISTORY: The patient has a sister who secondary to a myocardial infarction. SOCIAL HISTORY: The patient rarely drinks alcohol. She denies drug abuse. She continues to smoke every day. REVIEW OF SYSTEMS: Fourteen systems were reviewed, including osteopathic, pertinent positives and negatives above, otherwise negative. PHYSICAL EXAMINATION: VITAL SIGNS: Temperature 98.1, heart rate 67, blood pressure 142/76, respirations 16, pulse oximetry 99% on room air. GENERAL: The patient appears well, in no acute distress, alert, awake and oriented x3. HEENT: Extraocular muscles intact. Mucous membranes moist. NECK: Supple. No JVD at 45 degrees. No carotid bruits heard bilaterally. Carotid upstroke is brisk in nature. HEART: Regular rate and rhythm. Positive first and second heart sounds with no noted murmurs, gallops, or rubs. LUNGS: Clear to auscultation bilaterally. No wheezes, rales or rhonchi. ABDOMEN: Soft, nontender, nondistended. No organomegaly noted. EXTREMITIES: Show no clubbing, cyanosis, or edema. Femoral and distal pulses intact bilaterally. NEUROLOGIC: No focal deficits. SKIN: Warm, dry and intact. OSTEOPATHIC: No kyphoscoliosis, lordosis, or paraspinal tender points. LABORATORY DATA: Hemoglobin 12.0, hematocrit 35.2, platelets 130, potassium 4.1, BUN 14, creatinine 0.88. Troponin 0.33. Electrocardiogram (10/12/2017 at 0822): Sinus rhythm, left axis deviation, left bundle branch block, no change from previous. IMPRESSION: 1. Atypical chest pain. 2. Elevated troponin. 3. Left bundle branch block on EKG. 4. History of nonischemic cardiomyopathy with last known ejection fraction of 35% to 40%. 5. SIGNIFICANT ASPIRIN ALLERGY. RECOMMENDATIONS: 1. Ms. Cerda presented with atypical chest pain and elevation of her troponin. Overall, I do not believe that this is a type 1 NSTEMI, so I will recommend pharmacologic nuclear stress testing. 2. If this is negative, then consideration should be made for pulmonary embolism rule out. My biggest problem is that she has had no symptoms of tachycardia or shortness of breath other than the sharp, stabbing chest pain, which is atypical for coronary artery disease. 3. She has a chronic left bundle branch block and this most likely is due to degeneration of the AV node. 4. We will plan on doing a pharmacologic nuclear stress test to evaluate her coronary anatomy. 5. She has a chronic left bundle branch block and this is no change from previous. 6. We will recheck a 2-D echo, but most recent echo in the office shows an ejection fraction of 35-40%. 7. She is currently not on beta gerry therapy due to inability to tolerate both metoprolol and carvedilol. 8. She is currently on Plavix therapy due to her previous elevated troponin and an inability to take aspirin. 9. I spoke to her for greater than 3 minutes about tobacco cessation. Thank you for allowing me to see Monique Cerda. If there are any questions, please do not hesitate to call. DO JESUS Sol/ , 12:27 PM , 12:42 PM
[2017-10-12 14:43] LABS: Troponin I 0.39 ng/mL (0.02-0.05)
[2017-10-12] MEDS ORDERED: Regadenoson Inj 0.4 MG/5 ML Syringe IV.PUSH ONE (15:44)
--- NOTE | 2017-10-12 16:23 | ECG ---
Date Performed: 10/12/2017 Time Performed: 03:12:25 PTAGE: 67 years EKG: Sinus rhythm POSSIBLE LEFT ATRIAL ENLARGEMENT MARKED LEFT AXIS DEVIATION LEFT BUNDLE BRANCH BLOCK Since the previ ous tracing, no significant change noted ABNORMAL ECG PREVIOUS TRACING : 07/21/2016 03.30 DOCTOR: Luis A Singh Interpretating Date/Time 10/12/2017 16:18:54
--- NOTE | 2017-10-12 16:23 | ECG ---
Date Performed: 10/12/2017 Time Performed: 08:22:10 PTAGE: 67 years EKG: Sinus rhythm MARKED LEFT AXIS DEVIATION LEFT BUNDLE BRANCH BLOCK Since the previous tracing, no significant forte e noted ABNORMAL ECG PREVIOUS TRACING : 10/12/2017 03.12 DOCTOR: Luis A Singh Interpretating Date/Time 10/12/2017 16:19:06
--- NOTE | 2017-10-12 16:23 | ECG ---
Date Performed: 10/11/2017 Time Performed: 23:49:37 PTAGE: 67 years EKG: Sinus rhythm POSSIBLE LEFT ATRIAL ENLARGEMENT MARKED LEFT AXIS DEVIATION LEFT BUNDLE BRANCH BLOCK Since the previ ous tracing, no significant change noted ABNORMAL ECG NO PREVIOUS TRACING DOCTOR: Luis A Singh Interpretating Date/Time 10/12/2017 16:18:44
[2017-10-12] MEDS ORDERED: Acetaminophen 325 MG Tablet PO PRN (17:07)
[2017-10-12] MEDS ORDERED: Morphine Sulfate Inj 2 MG/ML Vial IV.PUSH PRN (17:08)
--- NOTE | 2017-10-12 17:25 | NM ---
EXAM DATE: 10/12/2017 5:07 PM EDT AGE/SEX: 67 years / Female INDICATIONS:Myocardial infarction. . Left chest pain. CLINICAL DATA: This is the patient's initial encounter. Patient reports that signs and symptoms have been present for 1 day and indicates a pain score of 9/10. MEDICAL/SURGICAL HISTORY: Diabetes mellitus type II. Hypertension. Hysterectomy. COMPARISON: No prior exams available for comparison. DOSE: 8.5 mCi Tc 99m Myoview at rest 25.4 mCi [id number] at stress 0.4 mg Lexiscan STRESS SYMPTOMS: Nausea and headache. EJECTION FRACTION: 13 % TECHNIQUE: The patient underwent pharmacologic stress with infusion of prescribed dose. Continuous ECG tracing was monitored during stress. Gated SPECT imaging was performed after stress and conventi onal SPECT imaging was performed at rest. The examination was performed on a SPECT/CT scanner, both attenuation and non-corrected datasets were reviewed. FINDINGS: Distribution: The maximum perfused segment at stress is in the lateral wall. Perfusion Study: There is decreased perfusion of mild to moderate severity at the septal wall witho ut definite reversible perfusion defect. Gated Study: Global hypokinesis. The ejection fraction is calculated at 13%. RISK CATEGORY: High (>3% Annual Morality Rate) CONCLUSION: 1. No definite reversible perfusion defects are identified to suggest stress-induced myocardial isch emia at this time. Electronically signed by: Joseph Weeks MD 10/12/2017 5:24 PM EDT
[2017-10-13] MEDS: Levothyroxine 112 MCG Tablet PO SCH (05:07)
[2017-10-13] MEDS: Heparin Drip 25,000 UNIT/250 ML BAG IV.CONT PRN (06:03)
[2017-10-13 06:05] LABS: Baso % (Auto) 0.8 % (0.0-2.0); Eos # (Auto) 0.4 th/mm3 (0.0-0.4); Eos % (Auto) 6.8 % (0.0-4.0); Hematocrit 37.1 % (35.0-46.0); Hemoglobin 12.7 gm/dL (11.6-15.3); Lymph # (Auto) 2.7 th/mm3 (1.0-4.8); Lymph % (Auto) 45.2 % (9.0-44.0); Mean Corpuscular HGB Conc 34.4 % (32.0-36.0); Mean Corpuscular Hemoglobin 32.4 pg (27.0-34.0); Mean Corpuscular Volume 94.3 fL (80.0-100.0); Mean Platelet Volume 10.5 fL (7.0-11.0); Mono # (Auto) 0.6 th/mm3 (0.0-0.9); Mono % (Auto) 9.9 % (0.0-8.0); Neut # (Auto) 2.2 th/mm3 (1.8-7.7); Neut % (Auto) 37.3 % (16.0-70.0); Platelet Count 140 th/mm3 (150-450); Red Blood Count 3.93 mil/mm3 (4.00-5.30); Red Cell Distribution Width 13.4 % (11.6-17.2)
[2017-10-13 06:23] LABS: Albumin 3.2 g/dL (3.4-5.0); Anion Gap 8 meq/L (5-15); Aspartate Aminotransferase 23 U/L (15-37); Blood Urea Nitrogen 10 mg/dL (7-18); Calcium 8.1 mg/dL (8.5-10.1); Carbon Dioxide 26.2 meq/L (21.0-32.0); Chloride 107 meq/L (98-107); Glomerular Filtration Rate Greater Than 89 mL/min (>89); Glucose,Random 102 mg/dL (74-106); Potassium 3.8 meq/L (3.5-5.1); Sodium 141 meq/L (136-145)
[2017-10-13 06:25] LABS: Alanine Aminotransferase 16 U/L (10-53)
[2017-10-13 06:26] LABS: Alkaline Phosphatase 74 U/L (45-117); Total Protein 6.1 g/dL (6.4-8.2)
[2017-10-13] MEDS: Lisinopril 20 MG Tablet PO SCH (08:45)
[2017-10-13] MEDS: Insulin NovoLOG Aspart Correctional Sugar Inj SQ SCH ×4 (08:51→22:09)
[2017-10-13] MEDS: Venlafaxine XR 75 MG Capsule PO SCH (08:51)
--- NOTE | 2017-10-13 11:03 | P.PN ---
Subjective Interval history: Follow-up atypical chest pain October 13, 2017-patient seen and examined, reported improvement of chest pain. Denies any significant shortness of breath. States she smoked 10 cigarettes per day 40+ years Physical Exam Vital signs: Vital Signs 10/12/17 11:00 10/12/17 12:00 10/12/17 13:00 Temperature 97.9 F Pulse Rate 60 71 63 Respiratory Rate 18 Blood Pressure 135/65 Pulse Oximetry 98 10/12/17 14:00 10/12/17 16:00 10/12/17 17:00 Temperature 98.2 F Pulse Rate 94 H 76 69 Respiratory Rate 18 Blood Pressure 148/82 H Pulse Oximetry 100 10/12/17 17:21 10/12/17 17:46 10/12/17 18:00 Temperature Pulse Rate 70 Respiratory Rate 16 Blood Pressure Pulse Oximetry 98 10/12/17 19:00 10/12/17 19:06 10/12/17 20:00 Temperature 98.1 F Pulse Rate 74 76 Respiratory Rate 18 16 Blood Pressure 145/81 H Pulse Oximetry 10/12/17 21:00 10/12/17 22:00 10/12/17 23:00 Temperature Pulse Rate 67 82 74 Respiratory Rate Blood Pressure Pulse Oximetry 10/12/17 23:33 10/13/17 00:00 10/13/17 01:00 Temperature 97.5 F L Pulse Rate 82 73 71 Respiratory Rate 16 Blood Pressure 114/59 L Pulse Oximetry 10/13/17 02:00 10/13/17 03:00 10/13/17 04:00 Temperature 98.8 F Pulse Rate 75 81 78 Respiratory Rate 16 Blood Pressure 139/75 Pulse Oximetry 10/13/17 04:55 10/13/17 06:00 10/13/17 07:00 Temperature Pulse Rate 74 67 68 Respiratory Rate Blood Pressure Pulse Oximetry 10/13/17 08:00 10/13/17 09:00 10/13/17 10:00 Temperature 97.9 F Pulse Rate 71 73 72 Respiratory Rate 18 Blood Pressure 141/80 H Pulse Oximetry 97 Intake & Output 10/12/17 10/13/17 10/13/17 18:59 06:59 18:59 Intake Total 0 / 0 730 / 730 1000 / 1000 Output Total 900 / 900 Balance 0 / 0 -170 / -170 1000 / 1000 Weight 76.5 kg Intake: IV 250 / 250 1000 / 1000 Heparin/D5W 25,000 U/250 mL 25, 250 / 250 000 unit In 250 ml @ Per Protocol IV.CONT TITRATE PRN Rx #:[id number] NS Inj 1,000 ML @ 40 mls/hr IV. 0 / 0 1000 / 1000 CONT .Q24H VENECIA Rx#:[id number] Oral 0 / 0 480 / 480 Output: Urine 900 / 900 Other: # Voids 2 Narrative: GENERAL: NAD SKIN: Warm and dry. HEAD: Normocephalic. EYES: No scleral icterus. No injection or drainage. NECK: Supple, trachea midline. No JVD or lymphadenopathy. CARDIOVASCULAR: Regular rate and rhythm without murmurs, gallops, or rubs. RESPIRATORY: Breath sounds equal bilaterally. No accessory muscle use. GASTROINTESTINAL: Abdomen soft, non-tender, nondistended. MUSCULOSKELETAL: No cyanosis, or edema. BACK: Nontender without obvious deformity. No CVA tenderness. Results - Labs CBC & Chem 7: 10/13/17 04:34 10/13/17 04:34 Laboratory Results - last 24 hr 10/12/17 10/12/17 10/12/17 00:20 11:24 13:59 WBC RBC Hgb Hct MCV MCH MCHC RDW Plt Count MPV Neut % (Auto) Lymph % (Auto) Brooke % (Auto) Eos % (Auto) Baso % (Auto) Neut # (Auto) Lymph # (Auto) Brooke # (Auto) Eos # (Auto) Baso # (Auto) WBC Differential Differential Comment APTT Sodium Potassium Chloride Carbon Dioxide Anion Gap BUN Creatinine Estimated GFR POC Glucose 106 Random Glucose Hemoglobin A1c 6.2 H Calcium Total Bilirubin AST ALT Alkaline Phosphatase Total Creatine Kinase 40 Troponin I 0.39 H Total Protein Albumin 10/12/17 10/12/17 10/12/17 13:59 17:24 20:48 WBC RBC Hgb Hct MCV MCH MCHC RDW Plt Count MPV Neut % (Auto) Lymph % (Auto) Brooke % (Auto) Eos % (Auto) Baso % (Auto) Neut # (Auto) Lymph # (Auto) Brooke # (Auto) Eos # (Auto) Baso # (Auto) WBC Differential Differential Comment APTT 42.3 H Sodium Potassium Chloride Carbon Dioxide Anion Gap BUN Creatinine Estimated GFR POC Glucose 204 H 85 Random Glucose Hemoglobin A1c Calcium Total Bilirubin AST ALT Alkaline Phosphatase Total Creatine Kinase Troponin I Total Protein Albumin 10/13/17 10/13/17 10/13/17 01:07 04:34 04:34 WBC 6.0 RBC 3.93 L Hgb 12.7 Hct 37.1 MCV 94.3 MCH 32.4 MCHC 34.4 RDW 13.4 Plt Count 140 L MPV 10.5 Neut % (Auto) 37.3 Lymph % (Auto) 45.2 H Brooke % (Auto) 9.9 H Eos % (Auto) 6.8 H Baso % (Auto) 0.8 Neut # (Auto) 2.2 Lymph # (Auto) 2.7 Brooke # (Auto) 0.6 Eos # (Auto) 0.4 Baso # (Auto) 0.0 WBC Differential . Differential Comment Auto diff final APTT Sodium 141 Potassium 3.8 Chloride 107 Carbon Dioxide 26.2 Anion Gap 8 BUN 10 Creatinine 0.65 Estimated GFR Greater than 89 POC Glucose 103 Random Glucose 102 Hemoglobin A1c Calcium 8.1 L Total Bilirubin 0.3 AST 23 ALT 16 Alkaline Phosphatase 74 Total Creatine Kinase Troponin I Total Protein 6.1 L Albumin 3.2 L 10/13/17 10/13/17 04:34 08:04 WBC RBC Hgb Hct MCV MCH MCHC RDW Plt Count MPV Neut % (Auto) Lymph % (Auto) Brooke % (Auto) Eos % (Auto) Baso % (Auto) Neut # (Auto) Lymph # (Auto) Brooke # (Auto) Eos # (Auto) Baso # (Auto) WBC Differential Differential Comment APTT 35.1 H Sodium Potassium Chloride Carbon Dioxide Anion Gap BUN Creatinine Estimated GFR POC Glucose 108 Random Glucose Hemoglobin A1c Calcium Total Bilirubin AST ALT Alkaline Phosphatase Total Creatine Kinase Troponin I Total Protein Albumin - Imaging Impressions Myocardial Perfusion Scan Nuc Med 10/12/17 00:00 CONCLUSION: 1. No definite reversible perfusion defects are identified to suggest stress- induced myocardial ischemia at this time. Assessment and Plan - Plan 67-year-old female with Non-ST elevation [place] History of nonischemic cardiomyopathy. Left bundle branch block Nuclear stress test on October 12, 2017- No definite reversible perfusion defects are identified to suggest stress-induced myocardial ischemia at this time. 2D echo pending Check CTA pulmonary to rule out PE Cardiology, Dr. Baron following Continue with heparin drip, lisinopril and Plavix Hypothyroidism. Check TSH. Continue home Synthroid. Diabetes mellitus. A1c pending. Continue to monitor.
--- NOTE | 2017-10-13 11:38 | CT ---
EXAM DATE: 10/13/2017 11:31 AM EDT AGE/SEX: 67 years / Female INDICATIONS: Shortness of breath and chest pain normal stress test CLINICAL DATA: This is the patient's initial encounter. Patient reports that signs and symptoms have been present for 1 day and indicates a pain score of 3/10. MEDICAL/SURGICAL HISTORY: Hypertension. Diabetes. Cardiovascular disease. Hysterectomy. RADIATION DOSE: 13.25 CTDI (mGy) COMPARISON: C, CHEST 1V SINGLE AP, 10/12/2017. . TECHNIQUE: Volumetric scanning was performed using a multi-row detector CT scanner during bolus infu klever of 71 ml Omnipaque 350 (iohexol) nonionic water-soluble contrast as a single exam dose. The juan pablo a was post processed with a variety of visualization algorithms including full volume maximum intensi ty projection and sliding thin slab reformation. Using automated exposure control and adjustment of the mA and/or kV according to patient size, radiation dose was kept as low as reasonably achievable t o obtain optimal diagnostic quality images. DICOM format image data is available electronically for review and comparison. FINDINGS: There is patchy parenchymal consolidation in the right upper lobe as well as a left upper lobe, and r ight middle lobe atelectasis and lingular atelectasis noted. There are no effusions. There is no evelyn opathy. There is no evidence for pulmonary embolism. There is a calcified nodule in the lingula. CONCLUSION: 1. Bilateral parenchymal consolidation. 2. No evidence for pulmonary embolism. Electronically signed by: Joseph Weeks MD 10/13/2017 11:37 AM EDT
--- NOTE | 2017-10-13 16:44 | ECHRPT ---
Indication: CM CONCLUSIONS The left ventricular systolic function is severely reduced with an estimated ejection fraction of 25 %. Mildly dilated left ventricle. Wall thickness is normal. There is global left ventricular dysfunction. Mild mitral valve regurgitation. BP: / HR: Rhythm: Sinus MEASUREMENTS (Male / Female) Normal Values Technical Quality:Good 2D ECHO LV Diastolic Diameter PLAX 5.6 cm 4.2 - 5.9 / 3.9 - 5.3 cm LV Systolic Diameter PLAX 5.1 cm IVS Diastolic Thickness 1.1 cm 0.6 - 1.0 / 0.6 - 0.9 cm LVPW Diastolic Thickness 1.0 cm 0.6 - 1.0 / 0.6 - 0.9 cm LV Relative Wall Thickness 0.4 RV Internal Dim ED PLAX 1.5 cm LVOT Diameter 2.2 cm LA Systolic Diameter LX 3.8 cm 3.0 - 4.0 / 2.7 - 3.8 cm LV Ejection Fraction MOD 4C 25.9 % LV Ejection Fraction 4C AL 26.9 % M-MODE Aortic Root Diameter MM 2.4 cm LA Systolic Diameter MM 4.0 cm LA Ao Ratio MM 1.7 AV Cusp Separation MM 2.0 cm DOPPLER AV Peak Velocity 100.0 cm/s AV Peak Gradient 4.0 mmHg LVOT Peak Velocity 77.5 cm/s LVOT Peak Gradient 2.4 mmHg AV Area Cont Eq pk 2.9 cm MV Area PHT 5.0 cm Mitral E Point Velocity 45.9 cm/s Mitral A Point Velocity 101.0 cm/s Mitral E to A Ratio 0.5 LV E' Lateral Velocity 16.8 cm/s Mitral E to LV E' Lateral Ratio 2.7 LV E' Septal Velocity 8.6 cm/s Mitral E to LV E' Septal Ratio 5.3 PV Peak Velocity 97.7 cm/s PV Peak Gradient 3.8 mmHg FINDINGS LEFT VENTRICLE The left ventricular systolic function is severely reduced with an estimated ejection fraction of 25 %. Mildly dilated left ventricle. Wall thickness is normal. There is global left ventricular dysfunction. RIGHT VENTRICLE Normal right ventricular size and systolic function. LEFT ATRIUM The left atrial size is normal. RIGHT ATRIUM The right atrial size is normal. ATRIAL SEPTUM Normal atrial septal thickness without atrial level shunting by limited color doppler interrogation. AORTA The aortic root and proximal ascending aorta are normal in size on limited imaging. MITRAL VALVE Structurally normal mitral valve. Mild mitral valve regurgitation. AORTIC VALVE Trileaflet aortic valve. No aortic valve stenosis or regurgitation. TRICUSPID VALVE Structurally normal tricuspid valve. No tricuspid valve stenosis or regurgitation. PULMONARY VALVE The pulmonary valve is not well visualized. VESSELS The inferior vena cava is normal in size. PERICARDIUM No pericardial effusion. Rocky Arreaga MD (Electronically Signed) Final Date:13 October 2017 16:43
--- NOTE | 2017-10-13 21:57 | ECG ---
Date Performed: 10/12/2017 Time Performed: 09:46:30 PTAGE: 67 years EKG: Sinus bradycardia Left bundle branch block Abnormal ECG PREVIOUS TRACING : 10/12/2017 08.22 Since the previous tracing, no significant change noted DOCTOR: Valente Cross Interpretating Date/Time 10/13/2017 21:56:49
--- NOTE | 2017-10-13 23:01 | P.PNCA ---
Subjective Interval history: Chest pain last night No complaints this morning Physical Exam Vital signs: Vital Signs 10/12/17 23:00 10/12/17 23:33 10/13/17 00:00 Temperature 97.5 F L Pulse Rate 74 82 73 Respiratory Rate 16 Blood Pressure 114/59 L Pulse Oximetry 10/13/17 01:00 10/13/17 02:00 10/13/17 03:00 Temperature Pulse Rate 71 75 81 Respiratory Rate Blood Pressure Pulse Oximetry 10/13/17 04:00 10/13/17 04:55 10/13/17 06:00 Temperature 98.8 F Pulse Rate 78 74 67 Respiratory Rate 16 Blood Pressure 139/75 Pulse Oximetry 10/13/17 07:00 10/13/17 08:00 10/13/17 09:00 Temperature 97.9 F Pulse Rate 68 71 73 Respiratory Rate 18 Blood Pressure 141/80 H Pulse Oximetry 97 10/13/17 10:00 10/13/17 11:00 10/13/17 12:00 Temperature 98.2 F Pulse Rate 72 76 74 Respiratory Rate 18 Blood Pressure 138/79 Pulse Oximetry 98 10/13/17 13:00 10/13/17 14:00 10/13/17 15:00 Temperature Pulse Rate 75 75 77 Respiratory Rate Blood Pressure Pulse Oximetry 10/13/17 16:00 10/13/17 17:00 10/13/17 18:00 Temperature 98.2 F Pulse Rate 91 H 91 H 86 Respiratory Rate 18 Blood Pressure 148/87 H Pulse Oximetry 97 10/13/17 19:00 Temperature 98.6 F Pulse Rate 79 Respiratory Rate 16 Blood Pressure 149/83 H Pulse Oximetry 99 Intake & Output 10/13/17 10/13/17 10/14/17 06:59 18:59 06:59 Intake Total 730 / 730 1830 / 1830 Output Total 900 / 900 Balance -170 / -170 1830 / 1830 Weight 76.5 kg Intake: IV 250 / 250 1350 / 1350 Heparin/D5W 25,000 U/250 mL 25, 250 / 250 350 / 350 000 unit In 250 ml @ Per Protocol IV.CONT TITRATE PRN Rx #:[id number] NS Inj 1,000 ML @ 40 mls/hr IV. 0 / 0 1000 / 1000 CONT .Q24H [facility] Rx#:[id number] Oral 480 / 480 480 / 480 Output: Urine 900 / 900 Other: # Voids 3 Date of Last Bowel Movement 10/10/17 Narrative: GENERAL: NAD SKIN: Warm and dry. HEAD: Normocephalic. EYES: No scleral icterus. No injection or drainage. NECK: Supple, trachea midline. No JVD or lymphadenopathy. CARDIOVASCULAR: Regular rate and rhythm without murmurs, gallops, or rubs. RESPIRATORY: Breath sounds equal bilaterally. No accessory muscle use. GASTROINTESTINAL: Abdomen soft, non-tender, nondistended. MUSCULOSKELETAL: No cyanosis, or edema. BACK: Nontender without obvious deformity. No CVA tenderness. Assessment and Plan - Assessment (1) NICM (nonischemic cardiomyopathy) Code(s): I42.8 - Other cardiomyopathies Status: Acute (2) Non-ST elevated myocardial infarction (non-STEMI) Code(s): I21.4 - Non-ST elevation (NSTEMI) myocardial infarction Status: Acute (3) HTN (hypertension) Code(s): I10 - Essential (primary) hypertension Status: Acute (4) Diabetes mellitus Code(s): E11.9 - Type 2 diabetes mellitus without complications Status: Acute (5) Tobacco use Code(s): Z72.0 - Tobacco use Status: Acute - Plan 1) NICM EF~30% Con't current medications Will need repeat echo in 3 months to evaluate again for ICD 2) Chest pain Nuclear negative CTA done showing upper lobe infiltrates ? atypical CHF Will attempt to diurese Possible chest pain due to elevated LVEDP Will watch overnight after diuresis and if stable discharge home (3) HTN (hypertension) Qualifiers: Hypertension type: unspecified Qualified Code(s): I10 - Essential (primary) hypertension (4) Diabetes mellitus Qualifiers: Diabetes mellitus type: type 2 Diabetes mellitus long-term insulin use: without long-term use Diabetes mellitus complication status: with unspecified complications Qualified Code(s): E11.8 - Type 2 diabetes mellitus with unspecified complications
[2017-10-14] MEDS: Levothyroxine 112 MCG Tablet PO SCH (05:45)
[2017-10-14 06:39] LABS: Hematocrit 40.7 % (35.0-46.0); Mean Corpuscular HGB Conc 34.3 % (32.0-36.0); Mean Corpuscular Hemoglobin 32.2 pg (27.0-34.0); Mean Corpuscular Volume 93.8 fL (80.0-100.0); Mean Platelet Volume 9.6 fL (7.0-11.0); Platelet Count 145 th/mm3 (150-450); Red Blood Count 4.34 mil/mm3 (4.00-5.30); Red Cell Distribution Width 13.5 % (11.6-17.2); White Blood Count 6.6 th/mm3 (4.0-11.0)
[2017-10-14 07:18] VITALS: O2SAT 96
[2017-10-14] MEDS: Lisinopril 20 MG Tablet PO SCH (08:33)
[2017-10-14] MEDS: Venlafaxine XR 75 MG Capsule PO SCH (08:33)
[2017-10-14] MEDS: Insulin NovoLOG Aspart Correctional Sugar Inj SQ SCH (08:35)
--- NOTE | 2017-10-14 10:03 | P.PN ---
Subjective Interval history: Follow-up atypical chest pain October 13, 2017-patient seen and examined, reported improvement of chest pain. Denies any significant shortness of breath. States she smoked 10 cigarettes per day 40+ years October 14, 2017-patient seen and examined, reported improvement of shortness of breath and denies any chest pain. Case discussed with cardiology this a.m. Physical Exam Vital signs: Vital Signs 10/13/17 11:00 10/13/17 12:00 10/13/17 13:00 Temperature 98.2 F Pulse Rate 76 74 75 Respiratory Rate 18 Blood Pressure 138/79 Pulse Oximetry 98 10/13/17 14:00 10/13/17 15:00 10/13/17 16:00 Temperature 98.2 F Pulse Rate 75 77 91 H Respiratory Rate 18 Blood Pressure 148/87 H Pulse Oximetry 97 10/13/17 17:00 10/13/17 18:00 10/13/17 19:00 Temperature 98.6 F Pulse Rate 91 H 86 79 Respiratory Rate 16 Blood Pressure 149/83 H Pulse Oximetry 99 10/13/17 20:00 10/13/17 21:00 10/13/17 22:00 Temperature Pulse Rate 79 80 80 Respiratory Rate Blood Pressure Pulse Oximetry 10/13/17 23:00 10/14/17 00:00 10/14/17 01:00 Temperature 98.0 F Pulse Rate 82 76 76 Respiratory Rate 16 Blood Pressure 148/88 H Pulse Oximetry 98 10/14/17 02:00 10/14/17 03:00 10/14/17 04:00 Temperature 97.3 F L Pulse Rate 78 80 80 Respiratory Rate 16 Blood Pressure 129/83 Pulse Oximetry 97 10/14/17 05:00 10/14/17 06:00 10/14/17 07:00 Temperature Pulse Rate 76 85 86 Respiratory Rate 16 Blood Pressure 129/79 Pulse Oximetry 96 10/14/17 08:00 10/14/17 09:00 Temperature Pulse Rate 80 67 Respiratory Rate Blood Pressure Pulse Oximetry Intake & Output 10/13/17 10/14/17 10/14/17 18:59 06:59 18:59 Intake Total 1830 / 1830 720 / 720 Output Total 2300 / 2300 Balance 1830 / 1830 -1580 / -1580 Weight 75.5 kg Intake: IV 1350 / 1350 Heparin/D5W 25,000 U/250 mL 25, 350 / 350 000 unit In 250 ml @ Per Protocol IV.CONT TITRATE PRN Rx #:[id number] NS Inj 1,000 ML @ 40 mls/hr IV. 1000 / 1000 CONT .Q24H [facility] Rx#:[id number] Oral 480 / 480 720 / 720 Output: Urine 2300 / 2300 Other: # Voids 3 Date of Last Bowel Movement 10/10/17 Narrative: GENERAL: NAD SKIN: Warm and dry. HEAD: Normocephalic. EYES: No scleral icterus. No injection or drainage. NECK: Supple, trachea midline. No JVD or lymphadenopathy. CARDIOVASCULAR: Regular rate and rhythm without murmurs, gallops, or rubs. RESPIRATORY: Breath sounds equal bilaterally. No accessory muscle use. GASTROINTESTINAL: Abdomen soft, non-tender, nondistended. MUSCULOSKELETAL: No cyanosis, or edema. BACK: Nontender without obvious deformity. No CVA tenderness. Results - Labs CBC & Chem 7: 10/14/17 06:16 10/13/17 04:34 Laboratory Results - last 24 hr 10/13/17 10/13/17 10/13/17 11:08 13:20 15:06 WBC RBC Hgb Hct MCV MCH MCHC RDW Plt Count MPV APTT 38.6 H POC Glucose 102 117 H 10/13/17 10/13/17 10/14/17 20:25 21:42 06:16 WBC 6.6 RBC 4.34 Hgb 14.0 Hct 40.7 MCV 93.8 MCH 32.2 MCHC 34.3 RDW 13.5 Plt Count 145 L MPV 9.6 APTT 24.7 D POC Glucose 107 10/14/17 08:05 WBC RBC Hgb Hct MCV MCH MCHC RDW Plt Count MPV APTT POC Glucose 109 - Imaging Impressions Chest CTA 10/13/17 00:00 CONCLUSION: 1. Bilateral parenchymal consolidation. 2. No evidence for pulmonary embolism. Assessment and Plan - Plan 67-year-old female with Non-ST elevation [place] History of nonischemic cardiomyopathy. Left bundle branch block Nuclear stress test on October 12, 2017- No definite reversible perfusion defects are identified to suggest stress-induced myocardial ischemia at this time. 2D echo with 30% CTA pulmonary negative for PE Cardiology, Dr. Baron following Continue with heparin drip, lisinopril and Plavix Patient responded well to Lasix IV 20mg x 1 yesterday Hypothyroidism. Continue home Synthroid. Diabetes mellitus. A1c pending. Continue to monitor.
--- NOTE | 2017-10-14 10:05 | P.DS ---
Date of admission: 10/12/17 02:01 Primary care physician: UNKNOWN Anticipated date of discharge: 10/14/17 Brief History from admission: 67-year-old female with a history of nonischemic cardiomyopathy,, diabetes mellitus, hypothyroidism who presents with a sudden onset, constant, nonpleuritic, sharp substernal chest pain the afternoon of 10/11. Upon EMS arrival, patient received 2 doses of sub-lingual nitroglycerin with improvement chest pain. Patient subsequently received nitro paste with marketed improvement in chest pain. Patient denies any recent fevers, chills, shortness of breath. She says she is feeling fatigued since pain began this afternoon. Patient presented with similar symptoms in July 2016. Echocardiogram showed ejection fraction 3035%. Patient underwent cardiac catheterization which showed minimal coronary artery disease. Patient was started on medical management for cardiomyopathy at that time with plan to obtain repeat echocardiogram in 3 months. DS: Summary Hospital Course: While in hospital, patient was treated for: Non-ST elevation [place] History of nonischemic cardiomyopathy. Left bundle branch block Nuclear stress test on October 12, 2017- No definite reversible perfusion defects are identified to suggest stress-induced myocardial ischemia at this time. 2D echo with 30% CTA pulmonary negative for PE Cardiology, Dr. Baron following Treated with heparin drip, lisinopril and Plavix Patient responded well to Lasix IV 20mg x 1 yesterday Hypothyroidism. Treated with home Synthroid. - Time Spent with Patient Total time spent providing and/or coordinating discharge services: Less than 30 minutes Exam Vital signs: Vital Signs 10/13/17 11:00 10/13/17 12:00 10/13/17 13:00 Temperature 98.2 F Pulse Rate 76 74 75 Respiratory Rate 18 Blood Pressure 138/79 Pulse Oximetry 98 10/13/17 14:00 10/13/17 15:00 10/13/17 16:00 Temperature 98.2 F Pulse Rate 75 77 91 H Respiratory Rate 18 Blood Pressure 148/87 H Pulse Oximetry 97 10/13/17 17:00 10/13/17 18:00 10/13/17 19:00 Temperature 98.6 F Pulse Rate 91 H 86 79 Respiratory Rate 16 Blood Pressure 149/83 H Pulse Oximetry 99 10/13/17 20:00 10/13/17 21:00 10/13/17 22:00 Temperature Pulse Rate 79 80 80 Respiratory Rate Blood Pressure Pulse Oximetry 10/13/17 23:00 10/14/17 00:00 10/14/17 01:00 Temperature 98.0 F Pulse Rate 82 76 76 Respiratory Rate 16 Blood Pressure 148/88 H Pulse Oximetry 98 10/14/17 02:00 10/14/17 03:00 10/14/17 04:00 Temperature 97.3 F L Pulse Rate 78 80 80 Respiratory Rate 16 Blood Pressure 129/83 Pulse Oximetry 97 10/14/17 05:00 10/14/17 06:00 10/14/17 07:00 Temperature Pulse Rate 76 85 86 Respiratory Rate 16 Blood Pressure 129/79 Pulse Oximetry 96 10/14/17 08:00 10/14/17 09:00 Temperature Pulse Rate 80 67 Respiratory Rate Blood Pressure Pulse Oximetry Intake & Output 10/13/17 10/14/17 10/14/17 18:59 06:59 18:59 Intake Total 1830 / 1830 720 / 720 Output Total 2300 / 2300 Balance 1830 / 1830 -1580 / -1580 Weight 75.5 kg Intake: IV 1350 / 1350 Heparin/D5W 25,000 U/250 mL 25, 350 / 350 000 unit In 250 ml @ Per Protocol IV.CONT TITRATE PRN Rx #:[id number] NS Inj 1,000 ML @ 40 mls/hr IV. 1000 / 1000 CONT .Q24H [facility] Rx#:[id number] Oral 480 / 480 720 / 720 Output: Urine 2300 / 2300 Other: # Voids 3 Date of Last Bowel Movement 10/10/17 Narrative: GENERAL: NAD SKIN: Warm and dry. HEAD: Normocephalic. EYES: No scleral icterus. No injection or drainage. NECK: Supple, trachea midline. No JVD or lymphadenopathy. CARDIOVASCULAR: Regular rate and rhythm without murmurs, gallops, or rubs. RESPIRATORY: Breath sounds equal bilaterally. No accessory muscle use. GASTROINTESTINAL: Abdomen soft, non-tender, nondistended. MUSCULOSKELETAL: No cyanosis, or edema. BACK: Nontender without obvious deformity. No CVA tenderness. Results Procedures completed during hospitalization: None Labs on day of discharge: Labs from last 24 hours 10/14/17 10/14/17 10/13/17 08:05 06:16 21:42 WBC 6.6 RBC 4.34 Hgb 14.0 Hct 40.7 MCV 93.8 MCH 32.2 MCHC 34.3 RDW 13.5 Plt Count 145 L MPV 9.6 APTT 24.7 D POC Glucose 109 10/13/17 10/13/17 10/13/17 20:25 15:06 13:20 WBC RBC Hgb Hct MCV MCH MCHC RDW Plt Count MPV APTT 38.6 H POC Glucose 107 117 H 10/13/17 11:08 WBC RBC Hgb Hct MCV MCH MCHC RDW Plt Count MPV APTT POC Glucose 102 - Impressions ITS Impressions Myocardial Perfusion Scan Nuc Med 10/12/17 00:00 CONCLUSION: 1. No definite reversible perfusion defects are identified to suggest stress- induced myocardial ischemia at this time. Chest X-Ray 10/12/17 00:05 CONCLUSION: Patchy bilateral faint infiltrate. Chest CTA 10/13/17 00:00 CONCLUSION: 1. Bilateral parenchymal consolidation. 2. No evidence for pulmonary embolism. Discharge Plan - Discharge Disposition Patient Disposition: 01 Discharge Home - Discharge Condition Condition: Good - Discharge Order Discharge Orders: Discharge Order (Routine); Ordered 10/14/17 Ordered By: Juan C Boo - Physicians Team Primary Care Provider: UNKNOWN, Attending Provider: Juan C Boo Other Providers: Baldomero Baron DO
--- NOTE | 2017-10-14 10:18 | P.PNCA ---
Subjective Interval history: No events overnight Diuresed well, feels better Physical Exam Vital signs: Vital Signs 10/13/17 11:00 10/13/17 12:00 10/13/17 13:00 Temperature 98.2 F Pulse Rate 76 74 75 Respiratory Rate 18 Blood Pressure 138/79 Pulse Oximetry 98 10/13/17 14:00 10/13/17 15:00 10/13/17 16:00 Temperature 98.2 F Pulse Rate 75 77 91 H Respiratory Rate 18 Blood Pressure 148/87 H Pulse Oximetry 97 10/13/17 17:00 10/13/17 18:00 10/13/17 19:00 Temperature 98.6 F Pulse Rate 91 H 86 79 Respiratory Rate 16 Blood Pressure 149/83 H Pulse Oximetry 99 10/13/17 20:00 10/13/17 21:00 10/13/17 22:00 Temperature Pulse Rate 79 80 80 Respiratory Rate Blood Pressure Pulse Oximetry 10/13/17 23:00 10/14/17 00:00 10/14/17 01:00 Temperature 98.0 F Pulse Rate 82 76 76 Respiratory Rate 16 Blood Pressure 148/88 H Pulse Oximetry 98 10/14/17 02:00 10/14/17 03:00 10/14/17 04:00 Temperature 97.3 F L Pulse Rate 78 80 80 Respiratory Rate 16 Blood Pressure 129/83 Pulse Oximetry 97 10/14/17 05:00 10/14/17 06:00 10/14/17 07:00 Temperature Pulse Rate 76 85 86 Respiratory Rate 16 Blood Pressure 129/79 Pulse Oximetry 96 10/14/17 08:00 10/14/17 09:00 10/14/17 10:00 Temperature Pulse Rate 80 67 76 Respiratory Rate Blood Pressure Pulse Oximetry Intake & Output 10/13/17 10/14/17 10/14/17 18:59 06:59 18:59 Intake Total 1830 / 1830 720 / 720 Output Total 2300 / 2300 Balance 1830 / 1830 -1580 / -1580 Weight 75.5 kg Intake: IV 1350 / 1350 Heparin/D5W 25,000 U/250 mL 25, 350 / 350 000 unit In 250 ml @ Per Protocol IV.CONT TITRATE PRN Rx #:[id number] NS Inj 1,000 ML @ 40 mls/hr IV. 1000 / 1000 CONT .Q24H [facility] Rx#:[id number] Oral 480 / 480 720 / 720 Output: Urine 2300 / 2300 Other: # Voids 3 Date of Last Bowel Movement 10/10/17 Narrative: GENERAL: NAD SKIN: Warm and dry. HEAD: Normocephalic. EYES: No scleral icterus. No injection or drainage. NECK: Supple, trachea midline. No JVD or lymphadenopathy. CARDIOVASCULAR: Regular rate and rhythm without murmurs, gallops, or rubs. RESPIRATORY: Breath sounds equal bilaterally. No accessory muscle use. GASTROINTESTINAL: Abdomen soft, non-tender, nondistended. MUSCULOSKELETAL: No cyanosis, or edema. BACK: Nontender without obvious deformity. No CVA tenderness. Assessment and Plan - Assessment (1) NICM (nonischemic cardiomyopathy) Code(s): I42.8 - Other cardiomyopathies Status: Acute (2) Non-ST elevated myocardial infarction (non-STEMI) Code(s): I21.4 - Non-ST elevation (NSTEMI) myocardial infarction Status: Acute (3) HTN (hypertension) Code(s): I10 - Essential (primary) hypertension Status: Acute (4) Diabetes mellitus Code(s): E11.9 - Type 2 diabetes mellitus without complications Status: Acute (5) Tobacco use Code(s): Z72.0 - Tobacco use Status: Acute - Plan 1) NICM EF~30% Con't current medications Will need repeat echo in 3 months to evaluate again for ICD 2) Chest pain Nuclear negative CTA done showing upper lobe infiltrates ? atypical CHF vs secondary to previous flu Diuresed well Possible chest pain due to elevated LVEDP 3) Cardiovascularly stable for discharge Will send home on Lasix PRN for weight gain more than 2 lbs in 48 hrs. (3) HTN (hypertension) Qualifiers: Hypertension type: unspecified Qualified Code(s): I10 - Essential (primary) hypertension (4) Diabetes mellitus Qualifiers: Diabetes mellitus type: type 2 Diabetes mellitus petroleum terminal plant operator insulin use: without petroleum terminal plant operator use Diabetes mellitus complication status: with unspecified complications Qualified Code(s): E11.8 - Type 2 diabetes mellitus with unspecified complications
[2017-10-14 11:48] VITALS: BP 112/61; PULSE 96; RESP 17; TEMP 97.6
== END 2017-10-14 12:20 | disposition home or self-care (01) ==
LOC: NEPE 23:43 → NEDA 10-12 02:01 → HCPC 10-12 08:40 → NEDA 10-12 08:49
PROVIDERS: ADMIT Hospitalist; ATTEND Hospitalist